=== PATIENT | male | born 1995 | race Caucasian/White ===

== ENCOUNTER 2018-04-28 12:04 | Emergency (ER) | payer OTHER, SELFPAY ==
[2018-04-28 12:05] VITALS: BP 134/78; PULSE 127; RESP 18; TEMP 36.6; O2SAT 98; BMI 25.8
--- NOTE | 2018-04-28 12:27 | ED.DCSUM_ITS ---
- ER Visit Summary Date of Service: 04/28/18 Chief Complaint: Contact lens stuck in left eye History of Present Illness: The patient is a 22 M who presents for a contact lens stuck in left eye since Wednesday. Patient states he was trying to take his contact out, and it balled up into the inner corner of his eye. He has tried to get it out but is been unsuccessful. He has a foreign body sensation in the eye. He denies any pain, blurry vision, exudate or any other complaints. He has been wearing a contact only in the right eye and is not used any corrective lenses in the left since then. No other medical issues. Physical Examination: Pupils equal round reactive to light and extra ocular movement intact, no conjunctiva injection, inspection of the eyelid shows no swelling or erythema, no foreign body noted in the left eye on gross examination. Test Results: [] Emergency Department Course and Treatment: Tetracaine and fluorescein instilled into the left eye and slit lamp exam performed. There was no floor seen stain uptake noted, no corneal abrasion or ulceration, and no contact lens was found on very thorough examination of the eye. There was a very small black fiber noted in the medial margin of the eye, and it was gently removed easily with a cotton swab. Patient is to follow-up with ophthalmology if he continues to have the sensation that he has a contact lens in his eye. He has not in any significant discomfort but does have a foreign body sensation. He was given 3 days of bacitracin ointment to help soothe his eye. Patient discharged home. Treatment Plan: [] Disposition: [] Impression: Foreign body sensation of the left eye This note was generated with [employer] dictation software. It may contain incorrect words, spelling, and punctuation that were not noted in review of the chart prior to signing ED Disposition - Plan for ED Patient: Disposition: Home or Assisted Living Instructions: ED Foreign Body Cornea Referrals: NOT,DEFINED [NON-STAFF] - Doctor,Your [STAFF PHYSICIAN] - 1-2 Days if not improving Additional Instructions: No evidence of contact in your left eye. There was also no scratches or injuries noted to the eye itself. There was a small black fiber that was removed from the inner corner of the eye that may have been causing you some discomfort. Use the eye ointment 3 times a day for 3 days to help soothe your eye and help get rid of the foreign body sensation. If you continue to have the foreign body sensation after 2 days, please follow- up with your eye doctor for another evaluation. If you have any worsening of your condition or any new concerning symptoms, please return immediately to the emergency department for another evaluation.
[2018-04-28] MEDS: Fluorescein 1 MG STRIP 1 STRIP LEFT EYE (12:56)
[2018-04-28] MEDS: Tetracaine 0.5% Ophthalmic Bottle 1 DRP LEFT EYE (12:56)
== END 2018-04-28 14:00 | disposition home or self-care (01) ==
LOC: ED 13:58
PROVIDERS: Emergency Provider Emergency Medicine
DX: T15.82XA Foreign body in other and multiple parts of external eye, left eye, initial encounter (principal)
CPT/HCPCS: 99282

== ENCOUNTER 2018-08-29 10:31 | Emergency (ER) | payer OTHER, SELFPAY ==
[2018-08-29 10:32] VITALS: BP 131/93; PULSE 111; RESP 14; TEMP 36.5; O2SAT 94; BMI 26.5
--- NOTE | 2018-08-29 10:40 | RAD_ITS ---
STUDY: X-RAY - RIGHT HAND REASON FOR EXAM: Male, 23 years old. Pain along the fifth metacarpal following injury. TECHNIQUE: 3 view(s) of the hand. COMPARISON: None. FINDINGS: Normal radiocarpal articulation. Normal distal radioulnar joint. Normal visualized carpal bones. Normal carpal articulations Normal carpometacarpal articulation of the thumb. Normal second through fifth carpometacarpal joints. Normal metacarpi. Normal metacarpophalangeal joint of the thumb. Normal interphalangeal joint of the thumb. Normal proximal and distal phalanges of the thumb. Normal metacarpophalangeal joints of the second through fifth fingers. Normal proximal and distal interphalangeal joints of the second through fifth fingers. The patient is status post amputation of the distal portion of the distal phalanx of the third digit. The soft tissue structures are unremarkable. RAD/Hand Min 3 Views IMPRESSION: No acute abnormality is seen. Electronically Signed: Tonio Strong, at 12:36 EDT , Service support ,
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
[2018-08-29 12:13] VITALS: PULSE 77; RESP 14
== END 2018-08-29 12:19 | disposition home or self-care (01) ==
LOC: ED 11:17
PROVIDERS: Emergency Provider Emergency Medicine
DX: S60.221A Contusion of right hand, initial encounter (principal); W22.8XXA Striking against or struck by other objects, initial encounter; Y93.89 Activity, other specified; Y92.9 Unspecified place or not applicable
CPT/HCPCS: 73130; 99282

== ENCOUNTER 2018-08-31 09:54 | Emergency (ER) | payer OTHER, SELFPAY ==
[2018-08-31 09:54] VITALS: BP 126/95; PULSE 120; RESP 18; TEMP 36.6; O2SAT 97; BMI 26.5
[2018-08-31 10:07] VITALS: PULSE 119
--- NOTE | 2018-08-31 10:07 | CT_ITS ---
STUDY: CT ABDOMEN AND PELVIS WITH CONTRAST REASON FOR EXAM: Male, 23 years old. Diffuse abdominal pain. Lower abdominal pressure. RADIATION DOSAGE (If Supplied By Facility): CTDIvol = ( 15.00 ) mGy, DLP = ( 573.46 ) mGycm TECHNIQUE: Transaxial images were obtained from the dome of the diaphragm to the symphysis pubis without oral contrast. 100mL IV Isovue 370 was administered. Sagittal and coronal images were reconstructed. Individualized dose optimization techniques were used for this CT. COMPARISON: None. FINDINGS: The visualized lung bases are unremarkable. The visualized portions of the heart are within normal limits. Normal liver. Normal gallbladder and extrahepatic biliary system. Normal spleen. Normal pancreas. Normal bilateral adrenal glands. Normal right kidney. Normal left kidney. Normal visualized stomach. Normal small intestine. Large amount of fecal material is seen in the colon. The appendix is visualized and appears normal. Normal abdominal aorta. Normal inferior vena cava. Normal retroperitoneum. Normal urinary bladder. Normal abdominal wall. Normal osseous structures. CT/Abdomen/Pelvis W IV Cont ONLY IMPRESSION: Normal enhanced CT of the abdomen and pelvis. Electronically Signed: Tonio Strong, at 11:02 EDT , Service support ,
--- NOTE | 2018-08-31 10:10 | ED.VISSUMM ---
- ER Visit Summary Date of Service: 08/31/18 Chief Complaint: Diffuse abdominal pain History of Present Illness: The patient is a 23 M no significant past medical history. No prior abdominal surgeries. Initially pointed to his lower abdomen but then he stated it was more epigastric abdominal pain. States this started yesterday with somewhat intermittent. Crampy in nature. He denies any nausea or vomiting. He denies any diarrhea or constipation. He denies any dysuria. No fever. No melena or hematemesis. He denies any abdominal trauma or fever. He is never had pain like this before. Nothing specifically makes the discomfort better or worse. Physical Examination: Young healthy male no acute distress vital signs are stable and afebrile. H EENT exam unremarkable. Neck nontender no lymphadenopathy. Lungs clear to auscultation bilaterally. Heart regular rhythm rate about 100 no murmur. Abdomen soft. A Peguero. Nondistended. Normal bowel sounds. No peritoneal signs. Skin is diffusely tender there is no rebound, guarding or rigidity. He seems more tender in epigastric region. There is no specific Javier sign or McBurney's point tenderness. There is no obvious hernias or masses. There is no signs of obstruction. Patient is moving all 4 extremities. There are neurovascular intact. Back exam nontender. Neurologically is awake and alert with no focal motor deficits. Test Results: CBC normal white count 8. Normal hemoglobin. Chemistries normal normal creatinine gap. Liver enzymes normal. Lipase normal. UA normal. CT abdomen pelvis was mildly increased stool but otherwise unremarkable. Normal appendix. No acute abnormalities. Read by the radiologist and reviewed by me. Emergency Department Course and Treatment: Patient did not waiting for pain or nausea. Be given a liter normal saline due to him receiving a CT with IV contrast. Labs and a urinalysis will be obtained. Repeat exam patient is doing well. I explained to he and his family member in the room that we did not have a specific cause for his pain. All his tests are unremarkable. Treatment Plan: Prilosec daily. Follow-up with physician. Disposition: Discharge Impression: Acute abdominal pain of uncertain etiology This note was generated with [employer] dictation software. It may contain incorrect words, spelling, and punctuation that were not noted in review of the chart prior to signing ED Disposition - Plan for ED Patient: Referrals: Care Physician,No Primary [Primary Care Provider] -
[2018-08-31 10:17] LABS: Absolute Lymphocyte Count 1.11 X10^3/ul (0.83-4.51); Absolute Neutrophil Count 6.1 X10^3/uL (2.0-7.7); Basophil# 0.02 X10^3/uL; Basophil% 0.2 % (0-1); Eosinophils% 2.4 % (0-5); Hematocrit 44.8 % (40-54); Hemoglobin 15.5 g/dl (13.0-16.5); Lymphocyte # 1.11 X10^3/ul (4.0); Lymphocyte % 13.6 % (19-41); Mean Corp Hgb Conc 34.6 g/gl (32-36); Mean Corpuscular Hgb 30.2 pg (27.0-32.0); Mean Corpuscular Volume 87.2 fL (80-94); Mean Platelet Vol. 9.3 fl (6.2-12.0); Monocyte# 0.72 X10^3/uL; Monocyte% 8.8 % (0-10); Neutrophil # 6.12 X10^3/uL (2.7-7.7); Neutrophil % 74.8 % (47-70); POSITIVE COUNT NO; POSITIVE DIFFERENTIAL NO; POSITIVE MORPHOLOGY NO; Platelet Count 362 K/mm3 (150-450); RBC Distribution Width CV 12.2 % (11.6-14.6); RBC Distribution Width SD 38.6 fl (35.1-43.9); Red Blood Count 5.14 M/mm3 (4.6-6.2); White Blood Count 8.2 K/mm3 (4.4-11.0)
[2018-08-31] MEDS: 0.9% Normal Saline 1,000 ML 1000 ML IV (10:21)
[2018-08-31] MEDS: Famotidine 20 MG Tablet 40 MG PO (10:21)
[2018-08-31] MEDS: Mag Hydrox/Al Hydrox/Simeth 30 ML UDC PO (10:21)
[2018-08-31 10:34] LABS: AST(SGOT) 25 U/L (15-37); Alanine Aminotransfer ALT/SGPT 43 U/L (16-61); Albumin, Serum 4.1 g/dL (3.2-5.0); Alkaline Phosphatase 87 U/L (45-117); Anion Gap 6 (5-15); BUN 14 mg/dL (7-18); BUN/Creat Ratio 14.1 RATIO (10-20); Bilirubin, Direct 0.15 mg/dL (0.00-0.30); Calcium,Total 9.3 mg/dL (8.5-10.1); Chloride 104 mmol/L (98-107); EST Glomerular Filtration Rate 101 mL/min (>60); Est Glom Filt Rate - Afr Amer 122 mL/min (>60); Estimated Creatinine Clearance 120.65 ml/min; Glucose 133 mg/dL (74-106); Lipase 41 U/L (73-393); Protein, Total 8.1 g/dL (6.4-8.2); Sodium Level 139 mmol/L (136-145)
[2018-08-31 10:54] LABS: Mucous, Urine 0 SEEN /hpf (<or=2+); Red Blood Cells-Urine 0 SEEN /hpf (0-5); Squamous Epithelial Cells - UA 0 SEEN /hpf (0-5); White Blood Cells 0 SEEN /hpf (0-5)
[2018-08-31 10:55] LABS: Color, Urine Yellow (Yellow); Glucose, Dipstick Normal (Normal); Ketone-Dipstick Negative (Negative); Leukocyte Esterase-Dipstick Negative /ul (Negative); Nitrite-Dipstick Negative (Negative); Occult Blood-Urine Negative /ul (Negative); Protein-Dipstick 15 mg/dl (Negative); Specific Gravity, Urine 1.015 (1.002-1.030); Urine Bilirubin Dipstick Negative (Negative); Urine Clarity Clear (Clear); Urine Urobilinogen Normal (Normal); Urine pH 6.5 (5.0 - 8.0)
[2018-08-31 11:23] LABS: Bacteria RARE /hpf (None Seen)
--- NOTE | 2018-08-31 11:40 | ED.DEP ---
ED Disposition - Plan for ED Patient: Disposition: Home or Assisted Living Instructions: ABDOMINAL PAIN, Unkown Cause, (Male) Prescriptions: Omeprazole [Prilosec] 20 mg PO DAILY #14 cap Prescription Printed Referrals: Dale Kolb MD [STAFF PHYSICIAN] - 3-5 Days if not improving Additional Instructions: All your tests, urinalysis and CAT scan were unremarkable today. Prilosec you can buy [id number] or use the prescription for possible gastritis. Follow-up with a local physician if not improving.
[2018-08-31 11:49] VITALS: BP 152/89; PULSE 92; RESP 17; O2SAT 100
--- NOTE | 2018-08-31 11:50 | ED.RN ---
IV DC'ED, CATHETER INTACT, SMALL GAUZE DRESSING PLACED. DISCHARGE INSTRUCTIONS GIVEN TO AND REVIEWED WITH PATIENT, PATIENT DENIES QUESTIONS OR CONCERNS AND VOICES UNDERSTANDING OF DISCHARGE INSTRUCTIONS. PT AMBULATES OUT OF ROOM WITHOUT DIFFICULTY.
== END 2018-08-31 11:51 | disposition home or self-care (01) ==
PROVIDERS: Emergency Provider Emergency Medicine
DX: R10.9 Unspecified abdominal pain (principal)
CPT/HCPCS: 74177; 80048; 80076; 81001; 83690; 85025; 96360; 99284; J7030; Q9967; A4216

== ENCOUNTER 2020-05-24 20:14 | Emergency (ER) | payer OTHER, SELFPAY ==
[2020-05-24 20:16] VITALS: BP 148/77; PULSE 107; RESP 18; TEMP 36.4; O2SAT 98; BMI 28.1
--- NOTE | 2020-05-24 20:50 | ED.RN ---
Per Dr. Richard, PT does not need a sitter at this time but is not able to leave.
[2020-05-24 21:04] LABS: Absolute Lymphocyte Count 1.78 X10^3/uL (0.83-4.51); Absolute Neutrophil Count 4.3 X10^3/uL (2.0-7.7); Basophil# 0.03 X10^3/uL; Basophil% 0.4 % (0-1); Eosinophil# 0.16 X10^3/uL; Eosinophils% 2.4 % (0-5); Hematocrit 47.8 % (40-54); Hemoglobin 16.1 g/dL (13.0-16.5); Lymphocyte # 1.78 X10^3/ul (4.0); Lymphocyte % 26.3 % (19-41); Mean Corp Hgb Conc 33.7 g/dL (32-36); Mean Corpuscular Hgb 31.1 pg (27.0-32.0); Mean Corpuscular Volume 92.5 fL (80-94); Mean Platelet Vol. 10.3 fl (6.2-12.0); Monocyte# 0.43 X10^3/uL; Monocyte% 6.4 % (0-10); NRBC Flagged by Analyzer 0 % (0-5); Neutrophil # 4.33 X10^3/uL (2.7-7.7); Neutrophil % 64.1 % (47-70); Platelet Count 283 K/mm3 (150-450); RBC Distribution Width CV 12.2 % (11.6-14.6); RBC Distribution Width SD 42.5 fl (35.1-43.9); Red Blood Count 5.17 M/mm3 (4.6-6.2); White Blood Count 6.8 K/mm3 (4.4-11.0)
--- NOTE | 2020-05-24 21:05 | RAD_ITS ---
STUDY: X-RAY - RIGHT HAND REASON FOR EXAM: Male, 24 years old. pain, injury TECHNIQUE: 3 view(s) of the hand. 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 There is a chronic fracture deformity at the base of the distal phalanx of the second digit. Normal radiocarpal articulation. Normal distal radioulnar joint. No fracture is seen. Small cyst seen in the head of the distal phalanx of the fourth digit. Normal visualized carpal bones. Normal carpal articulations Normal carpometacarpal articulation of the thumb. Normal second through fifth carpometacarpal joints. Normal metacarpi. Normal joint spaces The soft tissue structures are unremarkable. RAD/Hand Min 3 Views IMPRESSION: No acute process. Several old posttraumatic deformities of the second through fourth distal phalanges Electronically Signed: Scott Ramirez MD at 21:55 EST , Service support ,
[2020-05-24 21:17] LABS: ALB/GLOB Ratio 1.2 RATIO (0.9-2.4); AST(SGOT) 20 U/L (15-37); Alanine Aminotransfer ALT/SGPT 26 U/L (16-61); Albumin, Serum 4.7 g/dL (3.2-5.0); Alkaline Phosphatase 79 U/L (45-117); Anion Gap 4 (5-15); BUN 8 mg/dL (7-18); BUN/Creat Ratio 8.5 RATIO (10-20); Chloride 106 mmol/L (98-107); Creatinine, Serum 0.94 mg/dL (0.70-1.30); EST Glomerular Filtration Rate 106 mL/min (>60); Est Glom Filt Rate - Afr Amer 129 mL/min (>60); Estimated Creatinine Clearance 127.28 ml/min; Globulin 3.9 g/dL (2.2-4.2); Glucose 95 mg/dL (74-106); Potassium 3.7 mmol/L (3.5-5.1); Protein, Total 8.6 g/dL (6.4-8.2); Sodium Level 140 mmol/L (136-145)
[2020-05-24 21:18] VITALS: RESP 16
--- NOTE | 2020-05-24 21:20 | ED.RN ---
MOM, ROSEMARY ALFREDO, - CAN BE CALLED IF NEEDED [phone]
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
[2020-05-24 22:35] LABS: Amphetamine Urine VISTA NEGATIVE (<1000 ng/mL); Barbiturate Urine VISTA NEGATIVE (< 200 ng/mL); Benzodiazepine Urine VISTA NEGATIVE (< 200 ng/mL); Cocaine Urine VISTA NEGATIVE (< 300 ng/mL); Ecstacy Urine VISTA NEGATIVE (< 500 ng/mL); Methadone Urine VISTA NEGATIVE (< 300 ng/mL); PCP Urine VISTA NEGATIVE (< 25 ng/mL); THC Urine VISTA POSITIVE (< 50 ng/mL); Vista UDS pH Range 6
[2020-05-25 01:00] VITALS: BP 130/70; PULSE 88; RESP 16; O2SAT 100
--- NOTE | 2020-05-25 02:54 | ED.RN ---
AFTER DR. RAPP'S EVALUATION, PT DOES NOT NEED 1 TO 1 SITTER.
--- NOTE | 2020-05-25 03:38 | ED.RN ---
JOHNSON FROM CRISIS CALLED AND SENT REFERRAL TO [facility]. SHE IS WAITIING TO HERE FROM THEM.
[2020-05-25 04:35] VITALS: BP 132/68; PULSE 75; RESP 18; O2SAT 98
[2020-05-25 06:11] VITALS: RESP 16
--- NOTE | 2020-05-25 06:37 | ED.RN ---
PT AWARE OF TRANSFER AND AGREES. ASKED PERMISSION FOR ME TO SPEAK TO PTS MOTHER, HE AGREED. SHE WAS CALLED AND UPDATED VIA PHONE. OFFERED REST ROOM, BEVERAGE OR SNACK, PT REFUSED AGAIN.
--- NOTE | 2020-05-25 07:46 | ED.RN ---
Report called at 0450 per knife finisher rn. No belongings in bin after d/c. Pt cooperative with transport.
== END 2020-05-25 07:25 ==
LOC: ED 21:31
PROVIDERS: Emergency Provider Emergency Medicine
DX: F32.9 Major depressive disorder, single episode, unspecified (principal); F17.200 Nicotine dependence, unspecified, uncomplicated
CPT/HCPCS: 36415; 73130; 80053; 80307; 82077; 85025; 87426; 99285

== ENCOUNTER → 2020-08-14 10:01 | Outpatient (CLI) | payer BC, OTHER, SELFPAY ==
[2020-08-14 12:02] LABS: Platelet Count 263 K/mm3 (150-450)
[2020-08-14 12:30] LABS: Hemoglobin A1c 4.7 % (3.8-5.6)
[2020-08-14 12:31] LABS: Valproic Acid (Depakene) Level 37 ug/mL (50-100)
[2020-08-14 12:52] LABS: AST(SGOT) 26 U/L (15-37); Alanine Aminotransfer ALT/SGPT 24 U/L (16-61); Cholesterol 139 mg/dL (200); High Density Lipoprotein 53 mg/dL; Triglycerides 58 mg/dL; Very Low Density Lipoprotein 12 mg/dL (5-40)
== END ==
PROVIDERS: Referring Provider Psychiatry & Neurology Psychiatry; Visit Provider Psychiatry & Neurology Psychiatry
DX: Z79.899 Other long term (current) drug therapy (principal)
CPT/HCPCS: 36415; 80061; 80164; 82140; 83036; 84450; 84460; 85049

== ENCOUNTER 2020-09-08 19:51 | Emergency (ER) | payer BC, OTHER, SELFPAY ==
[2020-09-08 19:51] VITALS: BP 134/84; PULSE 90; RESP 16; TEMP 36.2; O2SAT 98; BMI 29.7
--- NOTE | 2020-09-08 20:01 | EX.ED.UPPERE ---
HPI History of Present Illness Chief Complaint: Laceration Informant: patient and parent Narrative Narrative: 25-year-old male sustained a right hand laceration while cleaning his knife. He unknown tetanus. He has full range of motion of the index finger. Tetanus Immunization: Unknown PFSH PFS no medical history Home Medications omeprazole 20 mg PO DAILY #14 cap 08/31/18 [Rx Last Taken Unknown] Allergy/AdvReac Type Severity Reaction Status Date / Time No Known Allergies Allergy Verified 09/08/20 19:53 Social History (Updated 09/08/20 @ 20:[address] Chay Reddy, DO) Smoking Status: Current every day smoker tobacco type: cigarettes substance use type: does not use ROS ROS ED Constitutional Constitutional ED: Denies chills or weight loss Eyes Eyes: Denies change in vision or diplopia ENT ENT ED: Denies ear pain, rhinorrhea or sore throat Cardiovascular Cardiovascular: Denies chest pain, orthopnea, palpitations or racing heartbeat Respiratory/Chest Respiratory/Chest: Denies cough, dyspnea or orthopnea Gastrointestinal Gastrointestinal: Denies abdominal pain, diarrhea, nausea or vomiting Genitourinary Genitourinary ED: Denies dysuria, hematuria or urinary frequency Musculoskeletal Musculoskeletal: Denies arthralgias or myalgias Integumentary Reports other Details: See history of present illness ; Denies abscess or rash Neurologic Neurologic: Denies headache(s) or weakness Psychiatric Psychiatric: Denies anxiety, depression, suicidal ideation or suicidal thoughts Endocrine Endocrinology: Denies polydipsia, polyphagia or polyuria Allergic/Immunologic Allergic/Immunologic ED: Denies mouth swelling, tongue swelling or urticaria EXAM Physical Exam Const Vital Signs: 09/08/20 19:51 Temperature 97.1 F L Temperature Source Temporal Pulse Rate 90 Respiratory Rate 16 Blood Pressure 134/84 H Blood Pressure Mean 100 Pulse Ox 98 Oxygen Delivery Method Room Air Positive well nourished and well developed General Appearance ED: well developed HEENT Reports normocephalic, head/scalp atraumatic and moist mucous membranes Eyes PERRL and EOMs intact bilaterally Neck no lymphadenopathy, supple and no JVD Resp normal respiratory effort and clear to auscultation bilaterally Cardio regular rate, regular rhythm and no murmurs GI normal to inspection, nondistended, normoactive bowel sounds and non-tender Palpation: soft Back/Spine no CVA tenderness and normal ROM Extremity full ROM General Extremety ED: Negative for edema General Extremity: Negative for edema Neuro oriented x3 and CN's II-XII intact bilaterally Sensorium / Orientation: alert Motor Exam: strength 5/5 throughout Psych mental status grossly normal Mood & Affect: Negative for depressed or tearful Skin no rashes or lesions noted and no wounds Skin Narrative: There is a 2.5 cm linear laceration at the base of the volar aspect of the right index finger. Direct testing of the flexor tendons was normal. Neurovascular intact. Wound appears clean. MDM MDM MDM Narrative Medical decision making narrative: Wound was locally anesthetized using 1% lidocaine. Was washed with Shur-Clens and explored. It was closed using a total of four 3-0 Ethilon sutures. Wound care discussed with patient and family. Follow-up 10 days for suture removal. Discharge Plan Triage Chief Complaint: Laceration ED Provider: Chay Reddy Dx/Rx/DC Orders Clinical Impression: Laceration of hand, right Instructions: ED Laceration, Hand: All Closures Prescriptions: No Action omeprazole 20 MG capsule 20 mg PO DAILY Qty: 14 RF: 0 Primary Care Provider: Care Physician,No Primary Referrals: Phan Kim MD [STAFF PHYSICIAN] - 10 Day for suture removal Care Physician,No Primary [Primary Care Provider] - Disposition Disposition: Home, Self Care
[2020-09-08] MEDS: Diphth,Pertuss(Acell),Tet Vac 0.5 ML Vial IM (20:05)
[2020-09-08] MEDS: Lidocaine 1% (20 ml mdv) 20 ML Vial INFILT (20:08)
== END 2020-09-08 20:25 | disposition home or self-care (01) ==
LOC: ED 20:22
PROVIDERS: Emergency Provider Emergency Medicine
DX: S61.411A Laceration without foreign body of right hand, initial encounter (principal); F17.210 Nicotine dependence, cigarettes, uncomplicated; W26.0XXA Contact with knife, initial encounter
CPT/HCPCS: 12001; 90471; 90715; 99284

== ENCOUNTER 2021-01-29 14:14 | Emergency (ER) | payer OTHER, SELFPAY ==
[2021-01-29 14:15] VITALS: BP 152/97; PULSE 98; RESP 16; TEMP 36.4; O2SAT 98; BMI 30.5
[2021-01-29 15:14] LABS: Absolute Lymphocyte Count 1.91 X10^3/uL (0.83-4.51); Absolute Neutrophil Count 5.7 X10^3/uL (2.0-7.7); Basophil# 0.04 X10^3/uL; Basophil% 0.5 % (0-1); Eosinophil# 0.24 X10^3/uL; Eosinophils% 2.7 % (0-5); Lymphocyte # 1.91 X10^3/ul (0.83-4.51); Lymphocyte % 21.6 % (19-41); Mean Corp Hgb Conc 34.8 g/dL (32-36); Mean Corpuscular Hgb 31.1 pg (27.0-32.0); Mean Corpuscular Volume 89.3 fL (80-94); Mean Platelet Vol. 9.9 fl (6.2-12.0); Monocyte# 0.92 X10^3/uL; Monocyte% 10.4 % (0-10); NRBC Flagged by Analyzer 0 % (0-5); Neutrophil # 5.68 X10^3/uL (2.7-7.7); Neutrophil % 64.3 % (47-70); Platelet Count 250 K/mm3 (150-450); RBC Distribution Width CV 11.7 % (11.6-14.6); RBC Distribution Width SD 38.1 fl (35.1-43.9); Red Blood Count 5.15 M/mm3 (4.6-6.2); White Blood Count 8.8 K/mm3 (4.4-11.0)
[2021-01-29 15:29] LABS: Anion Gap 5 (5-15); BUN 15 mg/dL (7-18); BUN/Creat Ratio 15.4 RATIO (10-20); Calcium,Total 9.3 mg/dL (8.5-10.1); Chloride 102 mmol/L (98-107); Creatinine, Serum 0.98 mg/dL (0.70-1.30); EST Glomerular Filtration Rate 101 mL/min (>60); Est Glom Filt Rate - Afr Amer 122 mL/min (>60); Estimated Creatinine Clearance 117.23 ml/min; Glucose 92 mg/dL (74-106); Potassium 4.1 mmol/L (3.5-5.1); Sodium Level 135 mmol/L (136-145)
== END 2021-01-29 16:44 | disposition left against medical advice (07) ==
LOC: ED 16:55
DX: R69 Illness, unspecified (principal); Z53.21 Procedure and treatment not carried out due to patient leaving prior to being seen by health care provider
CPT/HCPCS: 36415; 80048; 82077; 85025

== ENCOUNTER → 2021-02-28 12:24 | Outpatient (CLI) | payer BC, OTHER, SELFPAY ==
[2021-02-28 15:32] LABS: Valproic Acid (Depakene) Level 34 ug/mL (50-100)
== END ==
PROVIDERS: Referring Provider Psychiatry & Neurology Psychiatry; Visit Provider Psychiatry & Neurology Psychiatry
DX: Z79.899 Other long term (current) drug therapy (principal)
CPT/HCPCS: 36415; 80164; 82140

== ENCOUNTER 2021-03-07 20:35 | Emergency (ER) | payer BC, OTHER, SELFPAY ==
[2021-03-07 20:36] VITALS: BP 141/97; PULSE 103; RESP 16; TEMP 36.6; O2SAT 99; BMI 32.1
--- NOTE | 2021-03-07 20:47 | CT_ITS ---
INDICATION: LUQ blunt trauma/pain EXAMINATION: CT ABDOMEN AND PELVIS WITH CONTRAST - CT Abdomen And Pelvis W/ Contrast Injection TECHNIQUE: Helically acquired images were obtained of the abdomen and pelvis following IV contrast. A radiation dose optimization technique was used for this scan. IV Contrast dosage and agent: 100 mL of [id number] Oral contrast: None. COMPARISON: Chest x-ray 03/07/[address] abdomen and pelvis 05/03/2018. FINDINGS: LOWER CHEST: Lung bases are clear. No cardiomegaly or pericardial effusion. LIVER: Homogeneous. No focal mass. GALLBLADDER AND BILIARY TREE: No calcified gallstones. No gallbladder distension or wall edema. No intra- or extrahepatic biliary ductal dilation. PANCREAS: No focal cystic or solid mass. SPLEEN: Normal size without focal cystic or solid mass. ADRENAL GLANDS: No nodules. KIDNEYS AND URETERS: Normal renal size and position. No hydronephrosis. PERITONEUM: No ascites or free air. No other fluid collection. BOWEL: No evidence of acute appendicitis. No stomach or bowel distension. No focal inflammatory change. LYMPH NODES: No enlarged mesenteric or retroperitoneal lymph nodes. VESSELS: Aorta is non-dilated. URINARY BLADDER: Unremarkable. REPRODUCTIVE ORGANS: No pelvic masses. ABDOMINAL WALL: No discrete abdominal or pelvic wall hernia. BONES: No lytic or blastic abnormality. CT/Abdomen/Pelvis W IV Cont ONLY IMPRESSION: Negative CT of the abdomen and pelvis with contrast. Electronically Signed: Peter Sy DO at 22:08 EST Tel , Service support ,
--- NOTE | 2021-03-07 20:48 | EDS_ITS ---
HPI History of Present Illness Chief Complaint: Chest Other Informant: patient Onset/Context/Timing Onset: Today Mechanism/Context: Blunt Injury and Fall Location of pain/injuries: - (LUQ abd / left lower ribs) Quality of Pain: Aching Current Severity: Severe Maximum Severity: Severe Worsened by: movement Relieved by: remaining still Associated Symptoms Associated Symptoms: Negative for Parasthesias, Weakness and Loss of function Narrative Narrative: Patient states he tripped and fell off of a porch, landing against a pipe that was sticking out of the ground several inches, against his left lower ribs/abdomen where he has been having severe pain ever since, this happened just prior to arrival. He states the porch was not high, it was near the level of the top of the pipe that was sticking out of the ground. [facility] Medical History (Updated 03/07/21 @ 22:[address] Basil Diaz MD) Depression Psychosis Medical History no medical history no medical history Home Medications divalproex 500 mg PO BID 03/07/21 [History Last Taken Unknown] quetiapine 400 mg PO BID 03/07/21 [History Last Taken Unknown] Allergy/AdvReac Type Severity Reaction Status Date / Time No Known Allergies Allergy Verified 03/07/21 20:37 Surgical History (Updated 03/07/21 @ 21:05 by Silas Guevara) History of ear surgery History of elbow surgery Surgical History no surgical history no surgical history Social History Smoking Status: Current every day smoker tobacco type: cigarettes substance use type: does not use ROS ROS ED Constitutional Constitutional ED: Denies chills or fever(s) Eyes Eyes: Denies change in vision or diplopia ENT ENT ED: Denies rhinorrhea or sore throat Cardiovascular Cardiovascular: Reports chest pain; Denies palpitations Respiratory/Chest Respiratory/Chest: Denies cough or dyspnea Gastrointestinal Gastrointestinal: Reports abdominal pain; Denies diarrhea, nausea or vomiting Genitourinary Genitourinary ED: Denies dysuria or hematuria Musculoskeletal Musculoskeletal: Denies back pain or neck pain Integumentary Denies abscess or rash Neurologic Neurologic: Denies headache(s), paresthesias or weakness Psychiatric Psychiatric: Denies anxiety or suicidal thoughts EXAM Physical Exam Const Vital Signs: 03/07/21 20:36 03/07/21 21:04 03/07/21 22:05 Temperature 97.8 F Temperature Source Temporal Pulse Rate 103 H 72 Respiratory Rate 16 16 Respiratory Effort Normal Blood Pressure 141/97 H 128/64 H Blood Pressure Mean 111 85 Pulse Ox 99 96 Oxygen Delivery Method Room Air Positive well nourished and well developed Constitutional Narrative: No distress but appears uncomfortable due to pain in his left lower rib cage/abdomen. General Appearance ED: well developed and NAD HEENT Reports moist mucous membranes normocephalic and atraumatic Eyes PERRL and EOMs intact bilaterally Neck full ROM and supple Chest Wall inspection of chest normal Chest Narrative: Mild point tenderness proximally rib 8 midclavicular line on the left without step-off, crepitance, subcutaneous emphysema. No sternal tenderness. Resp normal respiratory effort and clear to auscultation bilaterally Cardio regular rate, regular rhythm and no murmurs GI non-distended GI Narrative: Very tender in the left upper quadrant subcostal area, no guarding or rebound. No other areas of abdominal tenderness. Abdominal wall normal without any obvious ecchymosis or signs of trauma. No Gutierrez Williamson sign. No [place] sign. Auscultation: normoactive bowel sounds Palpation: soft Back/Spine no CVA tenderness General Back: other FROM Extremity normal to inspection General Extremety ED: Negative for edema, pulses abnormal or tenderness General Extremity: Negative for edema or pulses abnormal Neuro oriented x3, CN's II-XII intact bilaterally and no sensory deficits noted Sensorium / Orientation: awake and alert Motor Exam: strength 5/5 throughout Skin no rashes or lesions noted and no wounds MDM MDM MDM Narrative Medical decision making narrative: CXR 1 view shows no PTX or obvious displaced rib fracture. Urinalysis shows microscopic hematuria without gross hematuria. Given that and his left upper quadrant tenderness, I thought it would be better to obtain a CT to rule out intra-abdominal organ injury. This was done, labs we re drawn to ensure good renal function, because with IV contrast imaging will be more accurate. This was done and negative for any intra-abdominal or retroperitoneal injury. Patient was given analgesics, he is reassured and given appropriate discharge instructions. Lab Data Attestation: I reviewed the patient's lab results. Labs: Laboratory Results - last 24 hr 03/07/21 03/07/21 03/07/21 20:53 21:11 21:11 WBC 10.4 RBC 4.50 L Hgb 14.0 Hct 40.1 MCV 89.1 MCH 31.1 MCHC 34.9 RDW Std Deviation 37.0 RDW Coeff of Emi 11.6 Plt Count 252 MPV 10.0 Immature Gran % (Auto) 1.400 H Neut % (Auto) 60.4 Lymph % (Auto) 23.1 [place] % (Auto) 11.4 H Eos % (Auto) 3.0 Baso % (Auto) 0.7 Absolute Neuts (auto) 6.3 Absolute Lymphs (auto) 2.40 Nucleated RBC % 0 Sodium 140 Potassium 3.7 Chloride 103 Carbon Dioxide 28.0 Anion Gap 9 BUN 14 Creatinine 1.01 Estim Creat Clear Calc 113.75 Est GFR (MDRD) Af Amer 117 Est GFR (MDRD) Non-Af 97 BUN/Creatinine Ratio 13.9 Glucose 113 H Calcium 8.6 Urine Color Yellow Urine Clarity Clear Urine pH 7.0 Ur Specific [place] 1.010 Urine Protein 15 H Urine Glucose (UA) Normal Urine Ketones Negative Urine Occult Blood 250 H Urine Nitrite Negative Urine Bilirubin Negative Urine Urobilinogen Normal Ur Leukocyte Esterase Negative Urine RBC 0-5 SEEN Urine WBC 0 SEEN Ur Squamous Epith Cells 0-5 SEEN Urine Bacteria RARE Urine Mucus 0 SEEN Radiography Diagnostic Testing: Clinical Impression(s) from Imaging Studies Abdomen/Pelvis CT 03/07/21 20:47 IMPRESSION: Negative CT of the abdomen and pelvis with contrast. Electronically Signed: Peter Sy DO at 22:08 EST Tel , Service support , Chest X-Ray 03/07/21 21:30 IMPRESSION: 1. No radiographic evidence of acute cardiopulmonary disease. Electronically Signed: Peter Sy DO at 22:05 EST Tel , Service support , Discharge Plan Triage Chief Complaint: Chest Other ED Provider: Basil Diaz Dx/Rx/DC Orders Clinical Impression: Contusion of rib, Fall from slip, trip, or stumble, Abdominal wall contusion Instructions: ED Contusion, Rib Prescriptions: No Action divalproex 500 mg tablet,delayed release (DR/EC) 500 mg PO BID RF: 0 quetiapine 400 mg tablet extended release 24 hr 400 mg PO BID RF: 0 Primary Care Provider: Care Physician,No Primary Referrals: Giovana Marquez [NON-STAFF] - 1 Week if not improving Care Physician,No Primary [Primary Care Provider] - Activity Restrictions/Additional Instructions: Tylenol, ibuprofen as needed for pain. May also use ice pack if needed. Disposition Disposition: Home, Self Care
[2021-03-07 21:00] LABS: Mucous, Urine 0 SEEN /hpf (<or=2+); White Blood Cells 0 SEEN /hpf (0-5)
[2021-03-07 21:10] LABS: Color, Urine Yellow (Yellow); Glucose, Dipstick Normal (Normal); Ketone-Dipstick Negative (Negative); Leukocyte Esterase-Dipstick Negative /ul (Negative); Nitrite-Dipstick Negative (Negative); Occult Blood-Urine 250 /ul (Negative); Protein-Dipstick 15 mg/dl (Negative); Urine Bilirubin Dipstick Negative (Negative); Urine Clarity Clear (Clear); Urine Urobilinogen Normal (Normal)
[2021-03-07] MEDS: Ondansetron 4 MG/2 ML Vial IV (21:17)
[2021-03-07] MEDS: Ketorolac 30 MG/ML Syringe IV (21:17)
[2021-03-07 21:21] LABS: Red Blood Cells-Urine 0-5 SEEN /hpf (0-5)
[2021-03-07 21:22] LABS: Bacteria RARE /hpf (None Seen); Squamous Epithelial Cells - UA 0-5 SEEN /hpf (0-5)
[2021-03-07 21:26] LABS: Absolute Neutrophil Count 6.3 X10^3/uL (2.0-7.7); Basophil# 0.07 X10^3/uL; Basophil% 0.7 % (0-1); Eosinophil# 0.31 X10^3/uL; Hematocrit 40.1 % (40-54); Lymphocyte % 23.1 % (19-41); Mean Corp Hgb Conc 34.9 g/dL (32-36); Mean Corpuscular Hgb 31.1 pg (27.0-32.0); Mean Corpuscular Volume 89.1 fL (80-94); Monocyte# 1.18 X10^3/uL; Monocyte% 11.4 % (0-10); NRBC Flagged by Analyzer 0 % (0-5); Neutrophil # 6.28 X10^3/uL (2.7-7.7); Neutrophil % 60.4 % (47-70); Platelet Count 252 K/mm3 (150-450); RBC Distribution Width CV 11.6 % (11.6-14.6); White Blood Count 10.4 K/mm3 (4.4-11.0)
--- NOTE | 2021-03-07 21:30 | RAD_ITS ---
INDICATION: rib injury EXAMINATION/TECHNIQUE: X-RAY - XR Chest 1 View COMPARISON: CT abdomen and pelvis 03/07/2021. FINDINGS: LINES/DEVICES: None. LUNGS: Symmetric normal lung volumes. No airspace opacity or abnormal interstitial pattern. No nodule or mass. No pleural effusion or pneumothorax. MEDIASTINUM AND CARDIOVASCULAR STRUCTURES: Normal size and contour of the cardiomediastinal silhouette. No evidence of pulmonary vascular congestion. BONES AND SOFT TISSUES: No abnormality within limits of the exam. RAD/Chest 1 View (Portable) IMPRESSION: 1. No radiographic evidence of acute cardiopulmonary disease. Electronically Signed: Peter Sy DO at 22:05 EST Tel , Service support ,
[2021-03-07 21:40] LABS: Anion Gap 9 (5-15); BUN 14 mg/dL (7-18); BUN/Creat Ratio 13.9 RATIO (10-20); Calcium,Total 8.6 mg/dL (8.5-10.1); Chloride 103 mmol/L (98-107); Creatinine, Serum 1.01 mg/dL (0.70-1.30); EST Glomerular Filtration Rate 97 mL/min (>60); Est Glom Filt Rate - Afr Amer 117 mL/min (>60); Estimated Creatinine Clearance 113.75 ml/min; Glucose 113 mg/dL (74-106); Potassium 3.7 mmol/L (3.5-5.1); Sodium Level 140 mmol/L (136-145)
[2021-03-07 22:05] VITALS: BP 128/64; PULSE 72; RESP 16; O2SAT 96
[2021-03-07 22:22] VITALS: BP 134/86; PULSE 64; RESP 18; TEMP 36.9; O2SAT 96
== END 2021-03-07 22:25 | disposition home or self-care (01) ==
PROVIDERS: Emergency Provider Emergency Medicine
DX: S20.212A Contusion of left front wall of thorax, initial encounter (principal); S30.1XXA Contusion of abdominal wall, initial encounter; W17.89XA Other fall from one level to another, initial encounter; Y93.9 Activity, unspecified; Y92.9 Unspecified place or not applicable; Y99.9 Unspecified external cause status; F32.A Depression, unspecified; F17.210 Nicotine dependence, cigarettes, uncomplicated; Z79.899 Other long term (current) drug therapy
CPT/HCPCS: 71045; 74177; 80048; 81001; 85025; 96361; 96374; 96375; 99283; Q9967; A4216; J2405

== ENCOUNTER → 2022-04-10 | Outpatient (CLI) | payer BC, SELFPAY ==
[2022-04-10 14:08] LABS: AST(SGOT) 30 U/L (15-37); Alanine Aminotransfer ALT/SGPT 56 U/L (16-61)
[2022-04-10 14:10] LABS: Valproic Acid (Depakene) Level 56 ug/mL (50-100)
[2022-04-10 14:41] LABS: Platelet Count 310 K/mm3 (150-450)
== END | disposition home or self-care (01) ==
PROVIDERS: Referring Provider Psychiatry & Neurology Psychiatry; Visit Provider Psychiatry & Neurology Psychiatry
DX: Z79.899 Other long term (current) drug therapy (principal)
CPT/HCPCS: 36415; 80164; 83036; 84450; 84460; 85049

== ENCOUNTER 2023-06-01 17:51 | Inpatient (IN) | payer BC, SELFPAY ==
[2023-06-01] VITALS (14 sets, daily range): BP systolic 90–132; BP diastolic 36–93; PULSE 73–112; RESP 13–24; TEMP 35.7–36.6; O2SAT 93–100; BMI 35.2; BMI 35.6
--- NOTE | 2023-06-01 17:54 | NURSING ---
NO OLD EKGS
--- NOTE | 2023-06-01 18:04 | EKG12_ITS ---
Test Reason : [facility] Pressure : / mmHG Vent. Rate : 074 BPM Atrial Rate : 074 BPM P-R Int : 102 ms QRS Dur : 090 ms QT Int : 380 ms P-R-T Axes : 058 055 034 degrees QTc Int : 421 ms Sinus rhythm with short NC Nonspecific T wave abnormality Abnormal ECG Confirmed by Peter Lopez ([id number]), photographic editor HUMBERTO MARES ([id number]) on 06/03/2023 10:59:34 AM Referred By: Confirmed By:Peter Lopez
--- NOTE | 2023-06-01 18:06 | ED.RN ---
IV from EMS infiltrated. turnicot to left upper arm placed at 1804.
--- NOTE | 2023-06-01 18:08 | EX.ED.CRITCA ---
HPI History of Present Illness Chief Complaint: Laceration Detail of Chief Complaint: Laceration left antecubital fossa Informant: patient and EMS Onset/Context/Timing Onset: Hours Context: Sudden Onset Timing: Continuous Quality: Vascular injury left upper extremity Location: Left antecubital fossa Mechanism/Context: Yes other Current Severity: Severe Maximum Severity: Severe Worsened by: Vascular injury Relieved by: Nothing Associated Symptoms Length of loss of consciousness: Not applicable Narrative Narrative: Patient is a 28-year-old male with history of schizophrenia who apparently punched a window. He sustained laceration in the left antecubital fossa. Paramedics states there were blood everywhere. Patient appears pale. He is tachycardic. Initial blood pressure was low. He was placed in Trendelenburg. Prior similar symptoms: No PFSH PFSH Medical History Depression Psychosis Home Medications divalproex 500 mg tablet,delayed release 500 mg PO BID 03/07/21 [History Last Taken Unknown] quetiapine 400 mg tablet,extended release 24 hr 400 mg PO BID 03/07/21 [History Last Taken Unknown] Allergy/AdvReac Type Severity Reaction Status Date / Time No Known Allergies Allergy Verified 06/01/23 17:52 Surgical History History of ear surgery History of elbow surgery Social History Smoking Status: Current every day smoker tobacco type: cigarettes substance use type: does not use ROS ROS ED Review of Systems ROS Unobtainable: due to mental status and other Details: Patient is agitated EXAM Physical Exam Const Vital Signs: 06/01/23 17:53 06/01/23 18:12 06/01/23 18:19 Temperature 97.8 F 97.6 F L Temperature Source Temporal Oral Pulse Rate 88 80 73 Respiratory Rate 16 16 24 H Blood Pressure 90/36 L 117/93 H Blood Pressure Mean 54 101 Blood Pressure Source Blood Pressure Position Blood Pressure Location Pulse Ox 96 96 97 Oxygen Delivery Method Room Air Room Air Room Air 06/01/23 18:26 06/01/23 18:34 06/01/23 18:39 Temperature 97.6 F L 97.5 F L 97.5 F L Temperature Source Oral Oral Oral Pulse Rate 75 79 77 Respiratory Rate 16 20 H 24 H Blood Pressure 113/80 99/58 L 99/61 Blood Pressure Mean 91 71 73 Blood Pressure Source Monitor Monitor Blood Pressure Position Semi-Fowlers Semi-Fowlers Blood Pressure Location Right Arm Right Arm Pulse Ox 98 100 99 Oxygen Delivery Method Room Air Room Air Room Air 06/01/23 18:51 06/01/23 19:24 Temperature 96.6 F L Temperature Source Pulse Rate 78 86 Respiratory Rate 16 20 H Blood Pressure 107/67 108/66 Blood Pressure Mean 80 80 Blood Pressure Source Blood Pressure Position Blood Pressure Location Pulse Ox 99 100 Oxygen Delivery Method Room Air Positive well nourished and well developed General Appearance ED: well developed and pallor HEENT normocephalic and atraumatic Eyes PERRL and EOMs intact bilaterally General Eye ED: Yes pale conjunctiva; Negative for scleral icterus Neck full ROM, no lymphadenopathy, supple and no JVD Resp Resp Narrative: Patient is tachypneic. There is no rales rhonchi or wheezing. There is no use of accessory muscles or retractions. Cardio regular rhythm, S2 normal heart sound and no murmurs GI non-tender, non-distended and no masses Back/Spine no CVA tenderness Extremity Extremity Narrative: Patient has no radial pulse on the left. Examination the wound reveals pulsation antecubital fossa suspect patient has a brachial artery injury. Possibly venous injury as well. Neuro No oriented x3, CN's II-XII intact bilaterally and No no sensory deficits noted Neuro Narrative: Awake but not alert. Complains of altered sensation left hand Psych Attitude: agitated Skin Skin Narrative: Laceration left antecubital fossa General Skin Exam: pallor MDM MDM MDM Narrative Medical decision making narrative: Call was placed to Dr. Iam Recio. He responded. He will call an OR team. He was informed that my concern is patient has a brachial artery laceration resulting in hypotension and tachycardia. He requested 2 units of blood to be placed on hold. He was informed that 1 unit of trauma blood is being administered. Will order an additional unit of blood. Patient's blood pressure improved in Trendelenburg position. He also received IV fluids. Unable to control blood with pressure dressing. Tourniquet was applied at 1804. Patient received 1 unit of trauma blood. Mother is present. Mother states he stopped his schizophrenic medication 1 month ago. He had auditory hallucinations. He apparently had 3 tall boys within the last 3 hours. History & Record Review Discussion w/independent historian: Patient Lab Data Attestation: I reviewed the patient's lab results. Lab results narrative: H&H is 14 1 and 42.4. Suspect patient's hemoglobin is much lower based on clinical findings. Coags normal. Basic metabolic panel is normal. Labs: Laboratory Results - last 24 hr 06/01/23 06/01/23 06/01/23 18:09 18:09 18:10 WBC 9.0 RBC 4.69 Hgb 14.1 Hct 42.4 MCV 90.4 MCH 30.1 MCHC 33.3 RDW Std Deviation 41.8 RDW Coeff of Emi 12.8 Plt Count 318 MPV 9.8 Immature Gran % (Auto) 0.400 Neut % (Auto) 49.9 Lymph % (Auto) 35.4 [place] % (Auto) 12.2 H Eos % (Auto) 1.7 Baso % (Auto) 0.4 Absolute Neuts (auto) 4.5 Absolute Lymphs (auto) 3.17 Nucleated RBC % 0 PT 13.6 INR 1.0 APTT 20.7 L Sodium 144 Potassium 3.0 L Chloride 108 H Carbon Dioxide 21.0 Anion Gap 15 BUN 7 Creatinine 1.06 Estim Creat Clear Calc 128.01 Est GFR (MDRD) Af Amer 109 Est GFR (MDRD) Non-Af 90 BUN/Creatinine Ratio 6.6 L Glucose 109 H Calcium 8.7 Blood Type O POSITIVE Antibody Screen NEGATIVE Crossmatch See Detail See Detail Management Discussion w/another healthcare provider: Licensed Psychologist (Vascular surgery for arterial injury) Treatment and Re-Evaluation Narrative: Blood pressure at 1835 was 99/74. Heart rate is 78. Plan is OR to fix vascular injury and transfer to [facility] per Dr. Recio for neurologic injury to his left upper extremity. Also patient will need psychiatric eval. [place] sheet was completed. Critical Care Time Critical Care Time: Yes Critical care time (excluding procedures): 30-74 minutes (32), Discussing w/Patient &/or Family/Sdv Pilot/Navigator/Dds Operator, Discussing w/Consultants (Dr. 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 Discharge Date/Time: 06/01/23 19:24
[2023-06-01] MEDS: Morphine 4 MG/ML Syringe IV (18:09)
[2023-06-01] MEDS: 0.9% Normal Saline (1000mL) 1,000 ML 1000 ML IV (18:10)
[2023-06-01] MEDS: Ondansetron 4 MG/2 ML Vial IV (18:11)
[2023-06-01 18:16] LABS: Absolute Lymphocyte Count 3.17 X10^3/uL (0.83-4.51); Absolute Neutrophil Count 4.5 X10^3/uL (2.0-7.7); Basophil# 0.04 X10^3/uL; Basophil% 0.4 % (0-1); Eosinophil# 0.15 X10^3/uL; Eosinophils% 1.7 % (0-5); Hematocrit 42.4 % (40-54); Hemoglobin 14.1 g/dL (13.0-16.5); Lymphocyte # 3.17 X10^3/ul (0.83-4.51); Lymphocyte % 35.4 % (19-41); Mean Corp Hgb Conc 33.3 g/dL (32-36); Mean Corpuscular Hgb 30.1 pg (27.0-32.0); Mean Corpuscular Volume 90.4 fL (80-94); Mean Platelet Vol. 9.8 fl (6.2-12.0); Monocyte# 1.09 X10^3/uL; Monocyte% 12.2 % (0-10); NRBC Flagged by Analyzer 0 % (0-5); Neutrophil # 4.46 X10^3/uL (2.7-7.7); Neutrophil % 49.9 % (47-70); Platelet Count 318 K/mm3 (150-450); RBC Distribution Width CV 12.8 % (11.6-14.6); RBC Distribution Width SD 41.8 fl (35.1-43.9); Red Blood Count 4.69 M/mm3 (4.6-6.2)
[2023-06-01 18:27] LABS: Partial Thromboplast Time 20.7 Seconds (24.1-36.2); Prothrombin Time (Protime)PT. 13.6 SECONDS (11.7-14.9)
--- NOTE | 2023-06-01 18:27 | ED.RN ---
unit of trauma blood started at 1815, pt verbal consent. [id number] Dr. Recio at bedside, spoke with mom at bedside.
[2023-06-01 18:30] LABS: Anion Gap 15 (5-15); BUN 7 mg/dL (7-18); BUN/Creat Ratio 6.6 RATIO (10-20); Calcium,Total 8.7 mg/dL (8.5-10.1); Chloride 108 mmol/L (98-107); Creatinine, Serum 1.06 mg/dL (0.70-1.30); EST Glomerular Filtration Rate 90 mL/min (>60); Est Glom Filt Rate - Afr Amer 109 mL/min (>60); Estimated Creatinine Clearance 128.01 ml/min; Glucose 109 mg/dL (74-106); Sodium Level 144 mmol/L (136-145)
[2023-06-01] MEDS: HYDROmorphone 0.5 MG/0.5 ML SYRINGE IV ×2 (18:44→19:22)
[2023-06-01] MEDS: Diphth,Pertuss(Acell),Tet Vac 0.5 ML Vial IM (18:44)
--- NOTE | 2023-06-01 19:01 | HP.PCM_ITS ---
HPI - General HPI Narrative LES ALFREDO, is a 28 M who presents intoxicated with left arm laceration after punching a window. There was reportedly profound bleeding at the scene that pressure dressing did not adequately control. A tourniquet was placed in the ED. He also has a history of schizophrenia and has been off his meds for ab out a month. He is unable to give a reliable history or cooperate with questions/exam. According to ED he had diminished sensory and motor in left hand and no radial/ulnar pulse. Currently no motor or sensory capabilities. [facility] Medical History Depression Psychosis Home Medications divalproex 500 mg tablet,delayed release 500 mg PO BID 03/07/21 [History Last Taken Unknown] quetiapine 400 mg tablet,extended release 24 hr 400 mg PO BID 03/07/21 [History Last Taken Unknown] Allergy/AdvReac Type Severity Reaction Status Date / Time No Known Allergies Allergy Verified 06/01/23 17:52 Surgical History History of ear surgery History of elbow surgery Social History Smoking Status: Current every day smoker tobacco type: cigarettes substance use type: does not use ROS Review of Systems ROS Unobtainable: due to mental status Vital Signs Vital Signs Vital Signs: 06/01/23 17:53 06/01/23 18:12 06/01/23 18:19 Temperature 97.8 F 97.6 F L Temperature Source Temporal Oral Pulse Rate 88 80 73 Respiratory Rate 16 16 24 H Blood Pressure 90/36 L 117/93 H Blood Pressure Mean 54 101 Blood Pressure Source Blood Pressure Position Blood Pressure Location Pulse Ox 96 96 97 Oxygen Delivery Method Room Air Room Air Room Air 06/01/23 18:26 06/01/23 18:34 06/01/23 18:39 Temperature 97.6 F L 97.5 F L 97.5 F L Temperature Source Oral Oral Oral Pulse Rate 75 79 77 Respiratory Rate 16 20 H 24 H Blood Pressure 113/80 99/58 L 99/61 Blood Pressure Mean 91 71 73 Blood Pressure Source Monitor Monitor Blood Pressure Position Semi-Fowlers Semi-Fowlers Blood Pressure Location Right Arm Right Arm Pulse Ox 98 100 99 Oxygen Delivery Method Room Air Room Air Room Air 06/01/23 18:51 Temperature Temperature Source Pulse Rate 78 Respiratory Rate 16 Blood Pressure 107/67 Blood Pressure Mean 80 Blood Pressure Source Blood Pressure Position Blood Pressure Location Pulse Ox 99 Oxygen Delivery Method Room Air Weight Weight: 238 lb 8.642 oz Body Mass Index (BMI) 35.2 Physical Exam Const alert and no apparent distress General Appearance: cooperative; Negative for combative or lethargic Orientation / Consciousness: awake Exam Limitations: altered mental status and behavioral limitations HEENT Head and Scalp: normocephalic and atraumatic Eyes EOMs intact bilaterally General Eye: normal appearance of both eyes Neck full ROM General: trachea midline Resp normal respiratory effort and no use of accessory muscles Effort and Inspection: Negative for labored, stridor or audible wheezes Cardio regular rate and regular rhythm Cardio Narrative: left arm tourniquet in place, pressure dressing over injury, no bleed through no radial/ulnar pulse, fingers cyanotic/cool, no motor/sensory in hand Peripheral Pulses: Negative for brachial pulses present or radial pulses present Back/Spine Cervical Spine: cervical ROM normal Extremity full ROM, normal capillary refill and no clubbing, cyanosis or edema Skin no rashes or lesions noted Skin Narrative: left antecubital fossa laceration Neuro oriented x3, CN's II-XII intact bilaterally, no focal motor deficits and no sensory deficits noted Psych thought process normal, cooperative, affect normal, speech normal and activity/motor behavior normal Results Lab / Micro Data 06/01/23 18:10 06/01/23 18:10 Labs: Laboratory Results - last 24 hr 06/01/23 18:10: WBC 9.0, RBC 4.69, Hgb 14.1, Hct 42.4, MCV 90.4, MCH 30.1, MCHC 33.3, RDW Std Deviation 41.8, RDW Coeff of Emi 12.8, Plt Count 318, MPV 9.8, Immature Gran % (Auto) 0.400, Neut % (Auto) 49.9, Lymph % (Auto) 35.4, [place] % (Auto) 12.2 H, Eos % (Auto) 1.7, Baso % (Auto) 0.4, Absolute Neuts (auto) 4.5, Absolute Lymphs (auto) 3.17, Nucleated RBC % 0, PT 13.6, INR 1.0, APTT 20.7 L, Sodium 144, Potassium 3.0 L, Chloride 108 H, Carbon Dioxide 21.0, Anion Gap 15, BUN 7, Creatinine 1.06, Estim Creat Clear Calc 128.01, Est GFR (MDRD) Af Amer 109, Est GFR (MDRD) Non-Af 90, BUN/Creatinine Ratio 6.6 L, Glucose 109 H, Calcium 8.7, Blood Type O POSITIVE, Antibody Screen NEGATIVE, Crossmatch See Detail Assessment & Plan Assessment/Plan (1) Brachial artery laceration: QUALIFIERS: Encounter type: initial encounter Laterality: left Qualified Code(s): S45.112A - Laceration of brachial artery, left side, initial encounter PLAN: -OR emergently -pink slip -to level 1 trauma post op; will require hand surgery eval, psych, possible plastic surgery
--- NOTE | 2023-06-01 19:08 | ED.RN ---
awaiting OR. blood has soaked through dressing, turnicot remains in place. it has been on 1 hour. reinforced dressing with trauma dressing and another shane bandage. MD also notified this RN that pt is pink slipped for psychiatric eval.
[2023-06-01] MEDS: 0.9% Normal Saline (1000mL) 1,000 ML 125 ML IV (19:14)
--- NOTE | 2023-06-01 19:23 | ED.RN ---
gave report to OR. ok for pt
[2023-06-01] MEDS: Heparin Injection (Vial) 5,000 UNIT/ML VIAL 5000 UNIT (20:04)
[2023-06-01] MEDS: Alteplase 2 MG/2 ML Vial 6 MG IV (21:30)
[2023-06-01] MEDS: Haloperidol Lactate 5 MG/ML Vial IV (21:58)
[2023-06-01] MEDS: Bupivacaine 0.25% 30 ML Vial (22:10)
--- NOTE | 2023-06-01 22:48 | OP.PCM_ITS ---
Report of Operation Date of Procedure: 06/01/23 Pre-Operative Diagnosis: left arm laceration Post-Operative Diagnosis: same, transected brachial artery Surgery/Procedure Performed:: repair left brachial artery with interposition GSV bypass Description of Surgical Findings:: palpable radial pulse, biphasic ulnar signal Surgeon: Iam Recio Type of Anesthesia: General Estimated Blood Loss (mL): 50 Description of Procedure: HPI: Patient is a 28-year-old male who suffered a laceration to his left arm after striking a window intentionally. He had pulsatile profound bleeding and a tourniquet was placed in the emergency department after he was brought to this facility by EMS. He is taken now emergently to the operating room for exploration. The patient is both intoxicated and has schizophrenia and is not able to fully participate in history or exam. His motor and sensory status of his hand are uncertain given the limitations of his mental status. Description of procedure: Upon obtaining informed consent and verification correct patient procedure site patient was taken to the operating room where he was placed under general anesthesia. He was then positioned prepped and draped in usual sterile fashion and timeout was performed. The laceration at the skin level was extended laterally and self-retaining retractors put in position. The brachial artery and adjacent veins were obviously disrupted. These were controlled with forceps and dissected free proximal and distal to the point where Vesseloops could be applied. We placed Vesseloops around the brachial artery as well as the proximal radial proximal ulnar arteries and controlled. Vein branches were ligated with combination of clips and silk ties. At this point the tourniquet was released and some trivial venous bleeding was visualized however the remainder of the wound bed had adequate hemostasis. The brachial artery proximal and distal were each flushed with heparinized saline and the patient was systemically heparinized. At this point incisions made along the left medial thigh over the great saphenous vein and Bovie electrocau onur was dissect down to the subcutaneous tissue. Subcutaneous heparin put in position and further section was carried out until the saphenous vein was visualized. At this point sharp dissection used to dissect free with sidebranches ligated with silk ties and divided. Once a satisfactory length of the vein was mobilized it was then ligated distally with silk ties and clips and proximally was clamped and divided at the saphenofemoral junction. The stump was then oversewn with 6-0 Prolene in 2 layers after which the clamps were removed and satisfactory hemostasis was noted. The vein was then oriented in reverse fashion and flushed heparinized saline with sidebranches with satisfactory hemostasis. The brachial artery was then excised back to nondisruptive tissue at the both the proximal and distal edges. The vein was then oriented in reverse fashion and beveled to match the cut end of the brachial artery. Anastomosis was then performed with 6-0 Prolene in running fashion. Prior to completing the suture line clamp was released allowing the anastomosis to pressurized to avoid pursestring narrowing. After the suture line was secured the vein was then marked to maintain orientation and clamped just distal to the anastomosis. The vein was then cut to length and beveled to match the distal brachial artery and anastomosis performed using 6-0 Prolene running fashion. Prior to completing suture line 6 mg of tPA was infused into the outflow vessels and then reoccluded with Vesseloops. At the suture line was completed the bypass clamp was released allowing it to pressurized to avoid pursestring narrowing. After completing suture line the distal clamps removed and satisfactory stasis was noted and there is palpable pulse in the radial and ulnar arteries. Radial artery at the wrist also had a palpable pulse in the ulnar had a biphasic signal. The wound was then irrigated with saline and inspected for hemostasis. We inspected for a median nerve injury and the nerve was not visualized which raise our suspicion that it had been fully transected and retracted into the musculature. We made cursory efforts to visualize this without further disrupting the adjacent tissue and when it was not able to be visualized we decided that further nerve exploration be done by the hand veterinary surgery technician. At this point the vein harvest site incision was closed with 3-0 Vicryl and 4 Monocryl and Dermabond for the skin. Injury was closed with 3-0 Vicryl followed by interrupted nylon loose approximation of the skin. A posterior splint was then applied and the patient awakened from anesthesia and taken to the intensive care unit for planned transfer immediately to a tertiary center more able to handle his multiple traumatic and psychologic issues.
[2023-06-01] MEDS: 0.45% Normal Saline 1,000 ML 100 ML IV (23:02)
[2023-06-02] VITALS: BP 108/66; BP 115/77; PULSE 113; RESP 12; TEMP 35.9; O2SAT 95
[2023-06-02] MEDS: Potassium Chloride 10mEq/100mL 10 MEQ/100 ML IV.SOLN. 100 MEQ IV BOLUS ×2 (00:14→01:33)
[2023-06-02] MEDS: 0.9% Saline Lock 10 ML Syringe IV (00:14)
[2023-06-02 01:00] VITALS: BP 100/54; PULSE 100; RESP 15; TEMP 36.3; O2SAT 92
[2023-06-02] MEDS: HYDROmorphone 1 MG/ML Syringe IV (01:35)
--- NOTE | 2023-06-02 01:48 | NURSING ---
2330 pt's belongings (clothes and shoes) sent home with mother.
--- NOTE | 2023-06-02 01:48 | NURSING ---
0100 report given to Sung SMITH at [facility].
--- NOTE | 2023-06-02 02:36 | NURSING ---
0200 [facility] here to transport pt. Report given to transport team. 0215 pt left the unit.
== END 2023-06-02 02:15 | disposition short-term general hospital (02) | DRG 907 ==
LOC: ED 18:25 → SDC 18:34 → ACINP 18:47 → ICU 21:09 → SDC 22:30 → ICU 22:30
PROVIDERS: Admitting Provider Surgery Trauma Surgery; Emergency Provider Emergency Medicine; Visit Provider Surgery Trauma Surgery
PROC: 03Q80ZZ Repair Left Brachial Artery, Open Approach (ICD-10-PCS; principal; 2023-06-01 19:30)
DX: S45.112A Laceration of brachial artery, left side, initial encounter (principal); T79.4XXA Traumatic shock, initial encounter; F20.9 Schizophrenia, unspecified; F17.210 Nicotine dependence, cigarettes, uncomplicated; W25.XXXA Contact with sharp glass, initial encounter; Y93.89 Activity, other specified; Z79.899 Other long term (current) drug therapy
CPT/HCPCS: 80048; 85025; 85610; 85730; 86850; 86900; 86901; 86920; 86922; 90715; 93005; 99285; A4648; J2997; J7030; P9016; A4216; J2405

== ENCOUNTER → 2023-06-16 | Outpatient (CLI) | payer BC, SELFPAY ==
--- NOTE | 2023-06-16 10:03 | VDLE_ITS ---
Reason For Study: LLE Swelling RIGHT LEFT CFV is compressible, spontaneous, phasic, GSV harvested from junction to approximately competent and demonstrates normal mid thigh. augmentation. GSV Mid thigh to ankle is compressible Procedure ASV prox thigh is compressible This is a venous duplex using B-mode, color Non vascularized anechoic structure measuring flow and spectral Doppler. approximately 6.42cm x 5.27cm noted in Lt Exam performed in department. Groin The exam was diagnostic. CFV is spontaneous, phasic, competent, and A preliminary report was called and/or faxed demonstrates normal augmentation. to Rafia Jean [facility] PA. FV spontaneous, phasic, competent and demonstrates normal augmentation. Unable to acquire compressions at CFV and SFJ due to patient inability to tolerate. Flow observed in color and doppler. POP V is compressible, spontaneous, phasic, competent and demonstrates normal augmentation. T/P Trunk is compressible. PTV is compressible. LT PerV is compressible. VL/Venous Duplex US, Unilateral Interpretation Summary Deep veins of the left lower extremity are patent and compressible segmentally. There is no evidence of left lower extremity deep vein thrombosis. The left great saphenous vein valerie ears patent and compressible segmentally. Non vascularized anechoic structure measuring approxi mately 6.42cm x 5.27cm noted in left groin Ordering Physician: Rafia Jean Referring Physician: N/A Performed By: Rock Caldera, RVT
== END | disposition home or self-care (01) ==
LOC: CVS 10:03
PROVIDERS: Referring Provider Physician Assistant; Visit Provider Physician Assistant
DX: M79.89 Other specified soft tissue disorders (principal)
CPT/HCPCS: 93971

== ENCOUNTER → 2023-06-28 | Outpatient (CLI) | payer BC, SELFPAY ==
--- NOTE | 2023-06-28 13:52 | VDLE_ITS ---
Reason For Study: Left leg pain RIGHT LEFT CFV is compressible, spontaneous, phasic, CFV is compressible, spontaneous, phasic, competent and demonstrates normal competent, and demonstrates normal augmentation. augmentation. Procedure FV is compressible, spontaneous, phasic, This is a venous duplex using B-mode, color competent and demonstrates normal flow and spectral Doppler. augmentation. Exam performed in department. POP V is compressible, spontaneous, phasic, A preliminary report was called and/or faxed competent and demonstrates normal to Cathy CONSERVATION POLICY ANALYST. augmentation. T/P Trunk is compressible. PTV is compressible. LT PerV is compressible. GSV harvested from junction to approximately mid thigh. GSV Mid thigh to ankle is compressible Non vascularized anechoic structure measuring approximately 4.48 x 6.04 cm noted in left groin. VL/Venous Duplex US, Unilateral Interpretation Summary Deep veins of the left lower extremity are patent and compressible segmentally. There is no evidence of left lower extremity deep vein thrombosis. The left great saphenous vein valerie ears patent and compressible segmentally. Left thigh seroma 4.48 x 6.04 cm, decreased in size from previous study Ordering Physician: Iam Recio Performed By: Sonam Esparza RVT
--- NOTE | 2023-06-28 13:52 | ADUUE_ITS ---
Reason For Study: S/P Brachial artery repair repair with GSV LEFT Left Subclavian velocity = 164.4 cm/sec. Left Axillary velocity = 110.7 cm/sec. Brachial artery prox, 76.5 cm/sec. Brachial artery mid, 53.4 cm/sec. Brachial artery distal, prox to repair, 25.5 cm/sec. Brachial artery distal, at repair, No Flow. Radial artery prox, 55.2 cm/sec. Radial artery mid, 79.9 cm/sec. Radial artery distal, 65.7 cm/sec. Ulnar artery throughout, Retrograde Flow. Preliminary report given to Cathy CRUZ. /US Art Duplex Unilat UP Extrem Interpretation Summary Left brachial interposition bypass occluded with reconstitution of radial arter y distally with preserved velocities and biphasic waveforms. Left ulnar artery with retrograde flow. Ordering Physician: Rafia Jean Performed By: Sonam Esparza RVT
== END | disposition home or self-care (01) ==
LOC: CVS 13:51
PROVIDERS: Referring Provider Physician Assistant; Visit Provider Physician Assistant
DX: M79.89 Other specified soft tissue disorders (principal); Z48.812 Encounter for surgical aftercare following surgery on the circulatory system
CPT/HCPCS: 93931; 93971

== ENCOUNTER 2023-08-11 13:50 | Emergency (ER) | payer BC, SELFPAY ==
[2023-08-11 13:51] VITALS: BP 169/113; PULSE 126; RESP 14; TEMP 35.9; O2SAT 95; BMI 35.3
--- NOTE | 2023-08-11 14:34 | EDS_ITS ---
HPI History of Present Illness Chief Complaint: Lower Extremity Injury Detail of Chief Complaint: Injury to right fifth toe Informant: patient Narrative Narrative: Patient presents emergency department complaint of injury to his right fifth toe that occurred about 10 minutes prior to coming in. Patient states that he was running into the bathroom when he stubbed his toe against the bathroom door. [facility] Medical History Depression Psychosis Home Medications ?Medication ?Instructions ?Recorded ?Last Taken ?Type divalproex 500 mg tablet,delayed 500 mg PO BID 03/07/21 Unknown History release quetiapine 400 mg tablet,extended 400 mg PO BID 03/07/21 Unknown History release 24 hr hydrocodone-acetaminophen 5-325mg 1 tab PO Q4H PRN PRN Pain 2 days 08/11/23 Unknown Rx 5mg-325mg #10 TABLETS Allergy/AdvReac Type Severity Reaction Status Date / Time No Known Allergies Allergy Verified 08/11/23 13:54 Surgical History History of ear surgery History of elbow surgery Social History Smoking Status: Current every day smoker tobacco type: cigarettes substance use type: does not use ROS ROS ED Review of Systems ROS Unobtainable: other Constitutional Constitutional ED: Reports lethargy; Denies chills, fever(s), sweats or weight loss Eyes Eyes: Denies blurry vision, change in vision or diplopia ENT ENT ED: Denies rhinorrhea or sore throat Cardiovascular Cardiovascular: Denies chest pain, orthopnea or racing heartbeat Respiratory/Chest Respiratory/Chest: Denies cough, dyspnea, dyspnea on exertion, orthopnea or sputum Gastrointestinal Gastrointestinal: Denies abdominal pain, diarrhea, nausea or vomiting Genitourinary Genitourinary ED: Denies dysuria, hematuria or urinary frequency Musculoskeletal Musculoskeletal: Reports other Details: Right great toe pain ; Denies arthralgias, back pain, myalgias or neck pain Integumentary Denies abscess, Abrasions or rash Neurologic Neurologic: Denies headache(s) or weakness Psychiatric Psychiatric: Denies anxiety, depression or suicidal thoughts Endocrine Endocrinology: Denies polydipsia, polyphagia or polyuria Hematologic/Lymphatic Hematologic/Lymphatic: Denies easy bleeding, easy bruising or lymphadenopathy Allergic/Immunologic Allergic/Immunologic ED: Denies mouth swelling, tongue swelling or urticaria EXAM Physical Exam Const Vital Signs: 08/11/23 13:51 Temperature 96.7 F L Temperature Source Temporal Pulse Rate 126 H Respiratory Rate 14 Blood Pressure 169/113 H Blood Pressure Mean 131 Pulse Ox 95 Oxygen Delivery Method Room Air Positive well nourished and well developed General Appearance ED: well developed and NAD HEENT Reports TM's clear and moist mucous membranes normocephalic and atraumatic; Negative for trauma or tenderness Tympanic Membrane ED: Yes TM's clear Eyes PERRL and EOMs intact bilaterally General Eye ED: Negative for pale conjunctiva or scleral icterus Neck no lymphadenopathy, supple and no JVD General: Negative for tenderness Chest Wall inspection of chest normal and palpation of chest normal Chest: Negative for tenderness Resp normal respiratory effort and clear to auscultation bilaterally Effort and Inspection: Negative for respiratory distress or pain with movement Auscultation: Negative for rhonchi, wheezes or diminished lung sounds Cardio regular rate, regular rhythm, S1 normal heart sound, S2 normal heart sound and no murmurs Peripheral Pulses: pulses 2+ throughout GI normal to inspection, nondistended, normoactive bowel sounds, soft to palpation, non-tender, non-distended and no masses Back/Spine no CVA tenderness and no thoracic nor lumbar tenderness Extremity normal to inspection Extremity Narrative: Right foot-patient has tenderness palpation to the right fifth toe. There is no obvious deformity currently. No significant ecchymosis or bruising noted. Neurovascularly intact. General Extremety ED: Negative for edema General Extremity: Negative for edema Neuro oriented x3, CN's II-XII intact bilaterally, no sensory deficits noted and gait normal Sensorium / Orientation: awake, alert, oriented to person, oriented to place and oriented to time Motor Exam: strength 5/5 throughout and strength abnormal Psych mental status grossly normal Skin no rashes or lesions noted and no wounds MDM MDM MDM Narrative Medical decision making narrative: Patient presents with injury to his right fifth toe. X-rays show fracture of the proximal phalanx nondisplaced. We will tamra tape his toes and give my postop shoe. He did not want crutches. I will write him a prescription for a few [place] for pain. Will refer to podiatry for follow-up. Radiography Diagnostic Testing: Clinical Impression(s) from Imaging Studies Toe X-Ray 08/11/23 14:43 IMPRESSION: There is a nondisplaced transverse fracture along the distal portion of the proximal pharynx of the fifth toe with overlying soft tissue swelling. Electronically Signed: Tonio Strong MD at 14:59 EDT , Three-view x-rays of the right toes obtained showed on my interpretation a fracture of the proximal phalanx of the fifth toe relatively nondisplaced. Radiology was in agreement. Discharge Plan Triage Chief Complaint: Lower Extremity Injury ED Provider: Micheline Patel Dx/Rx/DC Orders Clinical Impression: Fracture of toe Instructions: ED Fracture, Toe, Closed Prescriptions: New hydrocodone-acetaminophen 5-325 mg tablet 1 tab PO Q4H PRN PRN (Reason: Pain) 2 Days Qty: 10 0RF No Action divalproex 500 mg tablet,delayed release (DR/EC) 500 mg PO BID Patient Comments: PT HAS NOT TAKEN MEDS IN AT LEAST 3 WEEKS. quetiapine 400 mg tablet extended release 24 hr 400 mg PO BID Patient Comments: PT HAS NOT TAKEN MEDS IN AT LEAST 3 WEEKS. Primary Care Provider: Care Physician,No Primary Referrals: Wai Kimble DPM [Med Staff - Active Staff] - 5-7 Days Care Physician,No Primary [Primary Care Provider] - Print Language: French Disposition Disposition: Home, Self Care
--- NOTE | 2023-08-11 14:43 | RAD_ITS ---
STUDY: X-RAY RIGHT FOOT, FIFTH TOE REASON FOR EXAM: Male, 28 years old. Injury TECHNIQUE: 3 view(s) of the toe were obtained. COMPARISON: None. FINDINGS: Normal visualized metatarsus. Normal metatarsophalangeal (M.T.P) joint. Normal interphalangeal joints. There is a nondisplaced transverse fracture along the distal portion of the proximal phalanx of the fifth toe. Soft tissue swelling. RAD/Toe(s) Min 2 Views IMPRESSION: There is a nondisplaced transverse fracture along the distal portion of the proximal pharynx of the fifth toe with overlying soft tissue swelling. Electronically Signed: Tonio Strong MD at 14:59 EDT ,
[2023-08-11 15:30] VITALS: BP 146/88; PULSE 99; RESP 20; TEMP 36.7; O2SAT 98
== END 2023-08-11 15:31 | disposition home or self-care (01) ==
PROVIDERS: Emergency Provider Emergency Medicine; Visit Provider Emergency Medicine
DX: S92.514A Nondisplaced fracture of proximal phalanx of right lesser toe(s), initial encounter for closed fracture (principal); W22.09XA Striking against other stationary object, initial encounter; Y93.02 Activity, running; F17.210 Nicotine dependence, cigarettes, uncomplicated
CPT/HCPCS: 73660; 99283

== ENCOUNTER 2024-06-19 12:36 | Emergency (ER) | payer MEDICAID, SELFPAY ==
[2024-06-19 12:37] VITALS: BP 127/69; PULSE 79; RESP 16; TEMP 36.2; O2SAT 96; BMI 33.2
--- NOTE | 2024-06-19 12:57 | EKG12_ITS ---
Test Reason : Blood Pressure : */* mmHG Vent. Rate : 83 BPM Atrial Rate : 83 BPM P-R Int : 138 ms QRS Dur : 94 ms QT Int : 392 ms P-R-T Axes : 31 13 34 degrees QTcB Int : 460 ms Normal sinus rhythm Nonspecific ST abnormality Abnormal ECG Confirmed by RIZWAN MARCIAL, ALICIA ([id number]), production editor HUMBERTO MARES ([id number]) on 06/22/2024 8:27:11 AM Referred By: TAMELA Confirmed By: ALICIA ASTORGA MD
--- NOTE | 2024-06-19 13:05 | ED.RN ---
okay to change vitals to Q4. Patients belongings removed from room, room cleared, sitter at bedside
--- NOTE | 2024-06-19 13:22 | EX.ED.VIS.PS ---
HPI HPI - Psych History of Present Illness Chief Complaint: Suicidal Informant: patient, family and mental health staff Narrative Narrative: Patient is a 29-year-old male with history of schizophrenia, suicide attempt presenting from counseling center for concern of decompensated schizophrenia and requiring admission. Patient presenting with his father. Patient reports that he has been feeling depressed, angry, sad and energetic. He reports auditory hallucinations of voices that tell him to kill himself, break the law. He states the voices threatened to hurt or kayla him. He states the voices do seem to be worsening. He feels that he cannot put up with it anymore however he tells me he would not follow through with hurting himself or others. He did admit to the counseling center however that 2 weeks ago he did have thoughts of overdosing himself. He denied any history of self-harm to me but then does have a history of self-harm and prior suicide times which he is not told anyone about. He has not had any recent medication changes and his father thinks part of that is a problem. He is been on the same medication for some time and has not had any improvement. Does not think he can wait for outpatient follow-up. Came in for further evaluation. Patient currently denies any physical complaints. States he knows that he smokes too much. After discussion with Luly from the counseling center she voices significant concerns that he is unable to be safety planned as or as to himself as well as others and would recommend inpatient psychiatric care for medication adjustment and monitoring. PFSH PFS Medical History Psychosis Depression Home Medications ?Medication ?Instructions ?Recorded ?Last Taken ?Type divalproex 500 mg tablet,delayed 500 mg PO BID 03/07/21 Unknown History release quetiapine 400 mg tablet,extended 400 mg PO BID 03/07/21 Unknown History release 24 hr Allergy/AdvReac Type Severity Reaction Status Date / Time No Known Allergies Allergy Verified 06/19/24 12:39 Surgical History History of elbow surgery History of ear surgery Social History Smoking Status: Current every day smoker tobacco type: cigarettes substance use type: does not use ROS ROS ED Constitutional Constitutional ED: Denies chills or fever(s) Cardiovascular Cardiovascular: Denies chest pain Respiratory/Chest Respiratory/Chest: Reports cough Gastrointestinal Gastrointestinal: Denies abdominal pain, nausea or vomiting Integumentary Denies rash Psychiatric Psychiatric: Reports depression, suicidal thoughts and other Details: Paranoia, auditory hallucinations, aggressive outburst reported ; Denies anxiety EXAM Physical Exam Const Vital Signs: 06/19/24 12:37 Temperature 97.2 F L Temperature Source Temporal Pulse Rate 79 Respiratory Rate 16 Blood Pressure 127/69 H Blood Pressure Mean 88 Pulse Ox 96 Oxygen Delivery Method Room Air Positive well nourished and well developed General Appearance ED: well developed and NAD HEENT Reports moist mucous membranes Neck supple and no JVD Resp normal respiratory effort and clear to auscultation bilaterally Cardio no murmurs Rate: regular rate Rhythm: regular rhythm GI non-tender and non-distended Neuro oriented x3 Sensorium / Orientation: alert Motor Exam: muscle tone normal throughout Psych Appearance: grossly normal Attitude: withdrawn Activity / Motor Behavior: avoids eye contact Speech: minimal Mood & Affect: flat affect Thought Process: normal thought process Thought Content: hallucination(s) Positive for auditory Attention / Concentration: attention grossly intact and concentration grossly intact Insight: limited Judgement: fair Skin Lesions: no lesions Rashes: no rashes MDM MDM MDM Narrative Medical decision making narrative: Patient evaluated for concerns of decompensated paranoid schizophrenia. Evaluated the counseling center and felt that he is not capable of safety planning or outpatient management at this time. Will obtain medical clearance and work on placement. Patient currently calm and cooperative. I am in agreement with plan for placement. Patient is medically cleared. Is waiting on placement at this time. Lab Data Attestation: I reviewed the patient's lab results. Labs: Laboratory Results - last 24 hr 06/19/24 06/19/24 13:15 13:20 WBC 10.2 RBC 4.89 Hgb 15.1 Hct 43.3 MCV 88.5 MCH 30.9 MCHC 34.9 RDW Std Deviation 38.7 RDW Coeff of Emi 11.9 Plt Count 265 MPV 10.2 Immature Gran % (Auto) 0.700 Neut % (Auto) 76.6 H Lymph % (Auto) 16.3 L [place] % (Auto) 5.7 Eos % (Auto) 0.4 Baso % (Auto) 0.3 Absolute Neuts (auto) 7.8 H Absolute Lymphs (auto) 1.67 Nucleated RBC % 0 Sodium 137 Potassium 4.1 Chloride 100 Carbon Dioxide 24.4 Anion Gap 13 BUN 9 Creatinine 0.84 Estim Creat Clear Calc 160.38 Est GFR (MDRD) Non-Af 123 BUN/Creatinine Ratio 10.7 Glucose 101 H Calcium 9.5 Urine Opiates Screen NEGATIVE U Buprenorphine Qual NEGATIVE Ur Oxycodone Screen NEGATIVE Urine Methadone Screen NEGATIVE Urine Fentanyl Screen NEGATIVE Ur Barbiturates Screen NEGATIVE Ur Phencyclidine Scrn NEGATIVE Ur Amphetamines Screen NEGATIVE U Benzodiazepines Scrn NEGATIVE Urine Cocaine Screen NEGATIVE U Cannabinoids Screen PRESUMPTIVE POSITIVE Ethyl Alcohol < 10.1 Rhythm Strip Rhythm Strip: Sinus Rhythm Rate: 83 Ectopy: None EKG Initial EKG: Attestation: I personally reviewed and interpreted this EKG as follows: Interpretation: Sinus Rhythm Comments: Normal sinus rhythm at a rate of 83 bpm Normal axis Normal intervals No ST segment Management Discussion w/another healthcare provider: Behavioral health Discharge Plan Triage Chief Complaint: Suicidal ED Provider: Rosalind Richard Dx/Rx/DC Orders Clinical Impression: Hx of schizophrenia, Auditory hallucinations Prescriptions: No Action divalproex 500 mg tablet,delayed release (DR/EC) 500 mg PO BID Patient Comments: PT HAS NOT TAKEN MEDS IN AT LEAST 3 WEEKS. quetiapine 400 mg tablet extended release 24 hr 400 mg PO BID Patient Comments: PT HAS NOT TAKEN MEDS IN AT LEAST 3 WEEKS. Primary Care Provider: Care Physician,No Primary Referrals: Care Physician,No Primary [Primary Care Provider] - Print Language: Sudanese Disposition Disposition: Inpatient Rehab Unit/Facility
[2024-06-19 13:31] LABS: Absolute Lymphocyte Count 1.67 X10^3/uL (0.83-4.51); Absolute Neutrophil Count 7.8 X10^3/uL (2.0-7.7); Basophil# 0.03 X10^3/uL; Basophil% 0.3 % (0-1); Eosinophil# 0.04 X10^3/uL; Eosinophils% 0.4 % (0-5); Hematocrit 43.3 % (40-54); Hemoglobin 15.1 g/dL (13.0-16.5); Lymphocyte # 1.67 X10^3/ul (0.83-4.51); Lymphocyte % 16.3 % (19-41); Mean Corp Hgb Conc 34.9 g/dL (32-36); Mean Corpuscular Hgb 30.9 pg (27.0-32.0); Mean Corpuscular Volume 88.5 fL (80-94); Mean Platelet Vol. 10.2 fl (6.2-12.0); Monocyte# 0.58 X10^3/uL; Monocyte% 5.7 % (0-10); NRBC Flagged by Analyzer 0 % (0-5); Neutrophil # 7.83 X10^3/uL (2.7-7.7); Neutrophil % 76.6 % (47-70); Platelet Count 265 K/mm3 (150-450); RBC Distribution Width CV 11.9 % (11.6-14.6); RBC Distribution Width SD 38.7 fl (35.1-43.9); Red Blood Count 4.89 M/mm3 (4.6-6.2); White Blood Count 10.2 K/mm3 (4.4-11.0)
[2024-06-19 14:21] LABS: Alcohol, Blood (Medical)-Serum < 10.1 mg/dL (<=10.0)
[2024-06-19 14:22] LABS: Anion Gap 13 (5-15); BUN 9 mg/dL (4-19); BUN/Creat Ratio 10.7 RATIO (10-20); Calcium,Total 9.5 mg/dL (7.6-11.0); Carbon Dioxide 24.4 mmol/L (21.0-32.0); Chloride 100 mmol/L (98-108); Creatinine, Serum 0.84 mg/dL (0.70-1.20); EST Glomerular Filtration Rate 123 (>60); Estimated Creatinine Clearance 160.38 ml/min (50-250); Glucose 101 mg/dL (70-99); Potassium 4.1 mmol/L (3.3-5.1); Sodium Level 137 mmol/L (133-145)
[2024-06-19 14:24] LABS: Amphetamine Urine NEGATIVE (<1000 ng/mL); Barbiturate Urine NEGATIVE (< 200 ng/mL); Benzodiazepine Urine NEGATIVE (< 200 ng/mL); Buprenorphine Urine NEGATIVE (< 200 ng/mL); Cocaine Urine NEGATIVE (< 300 ng/mL); Fentanyl, Urine NEGATIVE; Methadone Urine NEGATIVE (< 300 ng/mL); Opiates Urine NEGATIVE (< 300 ng/mL); Oxycodone, Urine NEGATIVE (< 100 ng/mL); PCP Urine NEGATIVE (< 25 ng/mL); THC Urine PRESUMPTIVE POSITIVE (< 50 ng/mL)
[2024-06-19 17:14] VITALS: BP 121/67; PULSE 87; RESP 16; TEMP 36.9; O2SAT 97
[2024-06-19 21:54] VITALS: BP 127/51; PULSE 96; RESP 16; O2SAT 97
--- NOTE | 2024-06-19 22:01 | CM.ED ---
Social Work Vijay from [facility] called to let SW know that patient was denied at [facility] due to not having any open beds. Patient will remain on their waiting list. Vijay also sent referral to [facility]. Plan: Inpatient psychiatric hospitalization pending acceptance. Miya Garrison, OFFICE MACHINE INSPECTOR, INSPECTOR SEMICONDUCTOR WAFER
[2024-06-20 00:02] VITALS: BP 127/51; PULSE 96; RESP 16; TEMP 36.7; O2SAT 97
== END 2024-06-20 06:55 ==
PROVIDERS: Emergency Provider Emergency Medicine; Visit Provider Emergency Medicine
DX: F20.9 Schizophrenia, unspecified (principal); F17.210 Nicotine dependence, cigarettes, uncomplicated
CPT/HCPCS: 36415; 80048; 80307; 82077; 85025; 93005; 99285

== ENCOUNTER 2024-11-01 10:42 | Emergency (ER) | payer MEDICAID, SELFPAY ==
[2024-11-01 10:45] VITALS: BP 133/74; PULSE 109; RESP 18; TEMP 36.7; O2SAT 98; BMI 32.4
--- NOTE | 2024-11-01 10:51 | EX.ED.VIS.PS ---
HPI HPI - Psych History of Present Illness Chief Complaint: Mental Health Informant: patient, police/grounds caretaker and mental health staff Onset/Context/Timing Onset: Today Context: Gradual Onset Timing: Continuous Current Severity: Moderate Maximum Severity: Moderate Associated Symptoms Associated Symptoms - Psych: Positive for Threatening, Paranoia and Auditory Hallucinations Specific plan (suicidal thought): Reportedly threatened to hurt staff at the homeless alf. Narrative Narrative: 29-year-old male reportedly has a history of paranoid schizophrenia. He is under the care of the counseling center. Patient states has been taking his medications. He is reportedly hearing voices. Yesterday he was reportedly doing well. Today he was making threats to people at a homeless alf. Threatening to blow it up. To harm those individuals. Reportedly he is hearing voices. He was brought into the emergency department by police department. Prior similar symptoms: Yes Recent Illness/Hospitalization: [facility] Medical History Psychosis Depression Home Medications ?Medication ?Instructions ?Recorded ?Last Taken ?Type divalproex 500 mg tablet,delayed 500 mg PO BID 03/07/21 Unknown History release quetiapine 400 mg tablet,extended 400 mg PO BID 03/07/21 Unknown History release 24 hr Allergy/AdvReac Type Severity Reaction Status Date / Time No Known Allergies Allergy Verified 11/01/24 10:48 Surgical History History of elbow surgery History of ear surgery Social History Smoking Status: Current every day smoker tobacco type: cigarettes substance use type: does not use ROS ROS ED ROS Narrative Denies. Constitutional Constitutional ED: Denies chills or fever(s) Eyes Eyes: Denies blurry vision ENT ENT ED: Denies ear pain Cardiovascular Cardiovascular: Denies chest pain Respiratory/Chest Respiratory/Chest: Denies cough Gastrointestinal Gastrointestinal: Denies abdominal pain Genitourinary Genitourinary ED: Denies dysuria Integumentary Denies abscess Neurologic Neurologic: Denies headache(s) Psychiatric Psychiatric: Denies anxiety Endocrine Endocrinology: Denies polydipsia Hematologic/Lymphatic Hematologic/Lymphatic: Denies easy bleeding Allergic/Immunologic Allergic/Immunologic ED: Denies mouth swelling EXAM Physical Exam Narrative Exam Narrative: 29-year-old male sitting upright in bed. emergency response officer in the room. Nursing staff. Patient's anxious. He was worked up. He speaking loudly. He is cursing. H EENT exam pupils are round reactive to light. Moist mucous membranes. Neck nontender. No lymphadenopathy. No strangulation olvera. Lungs clear to auscultation bilaterally. Heart regular rhythm rate about 110 no murmur. Chest wall ribs nontender. Abdomen soft nontender. Moving all 4 extremities. 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 Normal dorsi plantarflexion. Nontender no edema. No track olvera. No trauma. Back nontender. Neurologically he is awake alert. Answering questions. Following commands. Emotionally he is agitated. He is worked up. Const Vital Signs: 11/01/24 10:45 Temperature 98.0 F Temperature Source Oral Pulse Rate 109 H Respiratory Rate 18 Blood Pressure 133/74 H Blood Pressure Mean 93 Pulse Ox 98 Oxygen Delivery Method Room Air Positive well nourished and well developed; Negative for cachectic, contractures or unkempt General Appearance ED: well developed; Negative for unkempt, cachectic, contractures or NAD Nutritional Appearance: Negative for cachectic HEENT Reports moist mucous membranes normocephalic and atraumatic Eyes PERRL and EOMs intact bilaterally Neck no lymphadenopathy, supple and no JVD Resp normal respiratory effort and clear to auscultation bilaterally Cardio S1 normal heart sound, S2 normal heart sound and no murmurs Rate: tachycardic GI non-tender, non-distended and no masses Auscultation: normoactive bowel sounds Palpation: soft; Negative for tender or guarding Back/Spine no CVA tenderness Extremity normal to inspection General Extremety ED: Negative for edema or tenderness General Extremity: Negative for edema Neuro CN's II-XII intact bilaterally Sensorium / Orientation: alert, oriented to person, oriented to place and oriented to time Motor Exam: strength 5/5 throughout Psych denies homicidal ideation; Negative for affect normal Appearance: Negative for unkempt Attitude: engaged, belligerent, agitated and aggressive Activity / Motor Behavior: appropriate eye contact Speech: loud Mood & Affect: depressed, anxious, tearful and hostile affect Thought Content: homicidality Attention / Concentration: attention grossly intact Memory / Cognition: memory grossly intact Insight: poor Judgement: poor Skin Lesions: no lesions Rashes: no rashes MDM MDM MDM Narrative Medical decision making narrative: 29-year-old male history of paranoid schizophrenia. Reportedly currently lives in a homeless alf. Today threatened to blow up the homeless alf and injure that is working there. He denies these allegations. He was brought in by police. He is very aggressive. Loud. He is cursing. Any mental health evaluation. Crisis is already evaluated the patient and he is under their care. He states he has been taking his medications. Reportedly was doing well yesterday. He will undergo ED mental health labs. He will be given Geodon to try to have him calm down. And he will eventually need to be placed. Patient was given IM Geodon. Shortly after that he broke the railing on the bed. Patient resting comfortably at 1 PM. History & Record Review Discussion w/independent historian: Patient Additional record(s) reviewed:: Prior inpatient record, Prior outpatient record, Prior ED visit and Prior labs Lab Data Attestation: I reviewed the patient's lab results. Lab results narrative: CBC shows a white count of 6. H&H of 13 and 39. Platelets 211. Chemistry is show a gap of 13. BUN and creatinine of 18 and 0.9. Glucose 96. Alcohol negative. Labs: Laboratory Results - last 24 hr 11/01/24 10:55 WBC 6.2 RBC 4.56 L Hgb 13.9 Hct 39.7 L MCV 87.1 MCH 30.5 MCHC 35.0 RDW Std Deviation 37.7 RDW Coeff of Emi 11.7 Plt Count 211 MPV 9.9 Immature Gran % (Auto) 0.300 Neut % (Auto) 45.2 L Lymph % (Auto) 38.5 [place] % (Auto) 10.3 H Eos % (Auto) 5.1 H Baso % (Auto) 0.6 Absolute Neuts (auto) 2.8 Absolute Lymphs (auto) 2.40 Nucleated RBC % 0 Sodium 137 Potassium 4.3 Chloride 100 Carbon Dioxide 23.8 Anion Gap 13 BUN 18 Creatinine 0.91 Estim Creat Clear Calc 146.25 Est GFR (MDRD) Non-Af 118 BUN/Creatinine Ratio 19.6 Glucose 96 Calcium 9.3 Ethyl Alcohol < 10.1 Discharge Plan Triage Chief Complaint: Mental Health ED Provider: Roberto Lamb Dx/Rx/DC Orders Clinical Impression: Paranoid schizophrenia, Psychosis, Agitated, At high risk for violence Prescriptions: No Action divalproex 500 mg tablet,delayed release (DR/EC) 500 mg PO BID Patient Comments: PT HAS NOT TAKEN MEDS IN AT LEAST 3 WEEKS. quetiapine 400 mg tablet extended release 24 hr 400 mg PO BID Patient Comments: PT HAS NOT TAKEN MEDS IN AT LEAST 3 WEEKS. Primary Care Provider: Care Physician,No Primary Referrals: Care Physician,No Primary [Primary Care Provider] - Print Language: Romansh Disposition Disposition: Psychiatric Hospital or Unit
--- NOTE | 2024-11-01 10:53 | ED.RN ---
THIS NURSE IS ASSIGNED TO PT IN ROOM 4. PT WAS BROUGHT IN BY POLICE D/T [facility] STATING PT HAD HI THREATENING STATEMENTS TO STAFF. PT REFUSED TO ANSWER THIS NURSE WITH INTAKE INFORMATION D/T BEING A FEMALE. PT REFUSES TO HAVE ANY CARE OR SPEAK TO A FEMALE, LIKE MYSELF, BASED ON A COMPLAINT FROM A FEMALE STAFF MEMBER AT THE FACILITY. THIS NURSE WAS ADVISED BY CHARGE NURSE KARLA FOX RN TO LEAVE THE ROOM AND HE WILL CONTINUE QUESTIONS WITH PT. POLICE AT THE BEDSIDE AT THIS TIME WITH PT. PT SCREAMING STATEMENTS OF FUCK THAT BITCH, I AM NOT TALKING TO ANY BITCH OR FEMALE THAT BITCH LIED ABOUT ME! LEAVE BITCH AND GET OUT OF MY ROOM THIS NURSE LEFT THE PT UNDER THE CARE OF THE STOCK TRADER WILLIAM AND UNDER SITTER WITH RN VAL OQUENDO WHO IS ADVISED BY KARLA FOX RN.
[2024-11-01 11:06] LABS: Hematocrit 39.7 % (40-54); Hemoglobin 13.9 g/dL (13.0-16.5); Immature Granulocytes Count 0.020 X10^3/uL (0.0-0.0); Mean Corp Hgb Conc 35.0 g/dL (32-36); Mean Corpuscular Volume 87.1 fL (80-94); Mean Platelet Vol. 9.9 fl (6.2-12.0); NRBC Flagged by Analyzer 0 % (0-5); Platelet Count 211 K/mm3 (150-450); RBC Distribution Width CV 11.7 % (11.6-14.6); RBC Distribution Width SD 37.7 fl (35.1-43.9); Red Blood Count 4.56 M/mm3 (4.6-6.2); White Blood Count 6.2 K/mm3 (4.4-11.0)
[2024-11-01] MEDS: Ziprasidone IM 20 MG/ML VIAL IM (11:07)
--- NOTE | 2024-11-01 11:15 | ED.RN ---
1042 PT ARRIVES VIA [facility]. [facility] PT COMES IN SCREAMING WITH [facility] SPIT BLACK ON. PT COOPERATIVE AT FIRST. UNDRESS AND GET BLOOD. PT VERBALLY AGRESSIVE. STATES THOSE FUCKING BITCHES LIED TO GET ME HERE, I NEED TO CALL MY DRIVERS' CASH CLERK. DR. AKERS IN TO SEE THE PT.
--- NOTE | 2024-11-01 11:19 | ED.RN ---
PT. HITTING SIDE OF BED BREAKS THE BED CONTROL OFF THE SIDE OF THE BED.
[2024-11-01 11:35] LABS: Anion Gap 13 (5-15); BUN 18 mg/dL (4-19); BUN/Creat Ratio 19.6 RATIO (10-20); Calcium,Total 9.3 mg/dL (7.6-11.0); Carbon Dioxide 23.8 mmol/L (21.0-32.0); Chloride 100 mmol/L (98-108); Estimated Creatinine Clearance 146.25 ml/min (50-250); Glucose 96 mg/dL (70-99); Potassium 4.3 mmol/L (3.3-5.1)
[2024-11-01 11:44] LABS: Alcohol, Blood (Medical)-Serum < 10.1 mg/dL (<=10.0)
--- NOTE | 2024-11-01 12:22 | ED.RN ---
Pt resting in bed with eyes closed, no signs of distress. Sitter remains at bedside.
[2024-11-01 14:26] LABS: Barbiturate Urine NEGATIVE (< 200 ng/mL); Benzodiazepine Urine NEGATIVE (< 200 ng/mL); PCP Urine NEGATIVE (< 25 ng/mL); THC Urine NEGATIVE (< 50 ng/mL)
[2024-11-01 18:26] VITALS: BP 128/68; PULSE 81; RESP 16; TEMP 36.7; O2SAT 98
--- NOTE | 2024-11-01 18:28 | ED.RN ---
REPORT CALLED TO [facility] NURSE, REED, AT THIS TIME. EMS ARRIVAL TIME ETA 184.
== END 2024-11-01 19:42 ==
PROVIDERS: Emergency Provider Emergency Medicine; Visit Provider Emergency Medicine
DX: F20.0 Paranoid schizophrenia (principal); Z59.01 Sheltered homelessness; F17.210 Nicotine dependence, cigarettes, uncomplicated
CPT/HCPCS: 80048; 80307; 82077; 85025; 96372; 99284; J3486

== ENCOUNTER 2025-01-03 15:39 | Emergency (ER) | payer MEDICAID, SELFPAY ==
[2025-01-03 15:40] VITALS: BP 126/75; PULSE 84; RESP 16; TEMP 36.7; O2SAT 100; BMI 31.7
[2025-01-03 16:55] LABS: Hematocrit 38.5 % (40-54); Hemoglobin 13.6 g/dL (13.0-16.5); Immature Granulocytes Count 0.020 X10^3/uL (0.0-0.0); Mean Corp Hgb Conc 35.3 g/dL (32-36); Mean Corpuscular Volume 87.5 fL (80-94); Mean Platelet Vol. 10.2 fl (6.2-12.0); NRBC Flagged by Analyzer 0 % (0-5); Platelet Count 222 K/mm3 (150-450); RBC Distribution Width CV 11.9 % (11.6-14.6); RBC Distribution Width SD 38.5 fl (35.1-43.9); Red Blood Count 4.40 M/mm3 (4.6-6.2); White Blood Count 5.2 K/mm3 (4.4-11.0)
[2025-01-03 17:21] LABS: AST(SGOT) 19 U/L (<=37); Alanine Aminotransfer ALT/SGPT 18 U/L (<=46); Albumin, Serum 4.3 g/dL (3.5-5.0); Alkaline Phosphatase 56 U/L (40-129); Anion Gap 9 (5-15); BUN 16 mg/dL (4-19); BUN/Creat Ratio 16.2 RATIO (10-20); Calcium,Total 8.9 mg/dL (7.6-11.0); Carbon Dioxide 25.5 mmol/L (21.0-32.0); Chloride 101 mmol/L (98-108); Estimated Creatinine Clearance 133.00 ml/min (50-250); Globulin 2.4 g/dL (2.2-4.2); Glucose 103 mg/dL (70-99); Potassium 4.4 mmol/L (3.3-5.1)
[2025-01-03 17:21] LABS: Barbiturate Urine NEGATIVE (< 200 ng/mL); Benzodiazepine Urine NEGATIVE (< 200 ng/mL); PCP Urine NEGATIVE (< 25 ng/mL); THC Urine NEGATIVE (< 50 ng/mL)
[2025-01-03 17:28] LABS: Alcohol, Blood (Medical)-Serum < 10.1 mg/dL (<=10.0); Valproic Acid (Depakene) Level 49 ug/mL (50-100)
[2025-01-03 21:23] VITALS: BP 110/70; PULSE 81; RESP 17; TEMP 37.1; O2SAT 98
[2025-01-03 21:31] VITALS: BP 110/70; PULSE 81; RESP 17; TEMP 37.1; O2SAT 98
[2025-01-04 06:30] VITALS: BP 115/75; PULSE 75; RESP 16; O2SAT 95
== END 2025-01-04 08:42 ==
PROVIDERS: Emergency Provider Emergency Medicine; Visit Provider Emergency Medicine
DX: F20.9 Schizophrenia, unspecified (principal); Z79.899 Other long term (current) drug therapy
CPT/HCPCS: 36415; 80053; 80164; 80307; 82077; 85025; 99284

== ENCOUNTER → 2025-01-31 | Outpatient (CLI) | payer SELFPAY ==
[2025-01-31 09:02] LABS: Hematocrit 43.3 % (40-54); Hemoglobin 14.7 g/dL (13.0-16.5); Immature Granulocytes Count 0.020 X10^3/uL (0.0-0.0); Mean Corp Hgb Conc 33.9 g/dL (32-36); Mean Corpuscular Volume 89.8 fL (80-94); Mean Platelet Vol. 10.3 fl (6.2-12.0); NRBC Flagged by Analyzer 0 % (0-5); Platelet Count 266 K/mm3 (150-450); RBC Distribution Width CV 11.6 % (11.6-14.6); RBC Distribution Width SD 38.2 fl (35.1-43.9); Red Blood Count 4.82 M/mm3 (4.6-6.2); White Blood Count 7.7 K/mm3 (4.4-11.0)
[2025-01-31 09:44] LABS: AST(SGOT) 19 U/L (<=37); Alanine Aminotransfer ALT/SGPT 17 U/L (<=46); Albumin, Serum 4.5 g/dL (3.5-5.0); Alkaline Phosphatase 64 U/L (40-129); Anion Gap 7 (5-15); BUN 11 mg/dL (4-19); BUN/Creat Ratio 10.8 RATIO (10-20); Calcium,Total 9.5 mg/dL (7.6-11.0); Carbon Dioxide 29.3 mmol/L (21.0-32.0); Chloride 102 mmol/L (98-108); Globulin 2.9 g/dL (2.2-4.2); Glucose 94 mg/dL (70-99); Potassium 4.3 mmol/L (3.3-5.1)
== END | disposition home or self-care (01) ==
DX: Z00.00 Encounter for general adult medical examination without abnormal findings (principal)
CPT/HCPCS: 36415; 80053; 84443; 85025